=== PATIENT | female | born 2000 | race Caucasian/White ===

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

== ENCOUNTER → 2020-03-12 | Outpatient (REF) | payer OTHER, BC | LOC: M LAB REF 15:43 | PROVIDERS: ATTEND Physician Assistant | DX: R30.0 Dysuria (principal) ==

== ENCOUNTER 2020-11-29 08:53 | Emergency (ER) | payer BC, OTHER ==
[~2020-11-29] VITALS: Ht 162.6 cm; Wt 52.6 kg
[2020-11-29 11:37] VITALS: BP 162/72
--- NOTE | 2020-11-30 08:12 | ECGEPIP ---
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
== END 2020-11-29 11:40 | disposition home or self-care (01) ==
LOC: M ED 08:53
DX: F43.0 Acute stress reaction (principal); Z88.1 Allergy status to other antibiotic agents

== ENCOUNTER 2021-01-21 02:20 | Emergency (ER) | payer BC, OTHER, SELFPAY ==
[~2021-01-21] VITALS: Ht 162.6 cm; Wt 65.0 kg
[2021-01-21 02:21] VITALS: BP 119/77
[2021-01-21] MEDS: CIPROFLOXACIN 500MG TABLET PO ONE (04:26)
[2021-01-21] MEDS: PHENAZOPYRIDINE 100 MG TAB PO ONE (04:26)
[2021-01-21] MEDS ORDERED: PYRI1TAB5 PO (04:27)
[2021-01-21] MEDS ORDERED: CIPR-249 PO (04:27)
== END 2021-01-21 04:58 | disposition home or self-care (01) ==
LOC: M ED 02:20
DX: N30.00 Acute cystitis without hematuria (principal); F41.9 Anxiety disorder, unspecified; F90.9 Attention-deficit hyperactivity disorder, unspecified type; F42.9 Obsessive-compulsive disorder, unspecified; Z88.1 Allergy status to other antibiotic agents; Z87.440 Personal history of urinary (tract) infections

== ENCOUNTER 2021-01-30 04:34 | Emergency (ER) | payer OTHER ==
[~2021-01-30] VITALS: Ht 154.9 cm; Wt 56.1 kg
[~2021-01-30 04:34] MED LIST: CIPR-249 PO; PYRI1TAB5 PO
[2021-01-30 04:35] VITALS: BP 116/75
== END 2021-01-30 05:59 | disposition left against medical advice (07) ==
LOC: M ED 04:34
DX: Z53.21 Procedure and treatment not carried out due to patient leaving prior to being seen by health care provider (principal)

== ENCOUNTER 2021-07-11 20:09 | Emergency (ER) | payer OTHER ==
[~2021-07-11] VITALS: Ht 162.6 cm; Wt 55.1 kg
[2021-07-11 20:12] VITALS: BP 140/83
--- OUTSIDE RECORDS SUMMARY | 2021-07-11 20:21 | CCD ---
Author Author [facility] Organization [facility] Address Unknown Phone Unavailable Care Team Providers Care Manager Of Maintenance Name Role Phone Delilah Brasher PROBLEMS Type Condition ICD9-CM Code [id number] Code Onset Dates Condition S tatus W/U Status Risk SNOMED Code Notes Problem Stomach pain R10.9 Active confirmed 0398111 02 Problem Anxiety F41.9 Active confirmed 86218309 Problem Facial paresthesia R20.2 Active confirmed 9 3267979 Problem Transient vision disturbance of both eyes H53.9 Active confirmed 26226928 Problem Chronic GERD K21.9 Active confirmed 4925257 09 ALLERGIES Allergen (clinical drug ingredient) Drug/Non Drug Allergy do cumented on EMR Reaction Allergy Type Onset Date Status Omnicef Hives Drug Allergy Active ENCOUNTERS from 2000 to 2021-05-29 Encounter Location Date Provider [place] [facility] [place] [address] [phone] [place] [address] 14 May, 2021 Delilah Brasher IMMUNIZATIONS No Information SOCIAL HISTORY Tobacco Use: Social History Observation Description Date Details (start date - stop date) Never Smoker Sex Assigned At : Social History Observation Description Sex Assigned At Unknown Education: Question Answer Notes Level of Education: Finished High School Language: Question Answer Notes Languages spoken: Luxembourgish Tobacco Use: Question Answer Notes Are you a: never smoker REASON FOR REFERRAL No Information VITAL SIGNS No information MEDICATIONS Medication SIG (Take, Route, Frequency, Duration) Notes Start Da te End Date Status Depo-Provera 150 MG/ML 1 ml Intramuscular for 30 day(s) Unknown Doxycycline Hyclate 100 MG 1 capsule Orally every 12 hrs for 7 d ay(s) January, Active Omeprazole 40 MG 1 capsule 30 minutes before morning meal Orally Once a day for 30 day(s) Dec, Active Nitrofurantoin Monohyd Macro 100 MG 1 capsule at bedti me with food Orally Twice a day for 5 days January, Active Carafate 1 GM 1 tablet on an empty stomach Orally Twice a day for 90 day(s) January, Active PROCEDURES No Information RESULTS No Results REASON FOR VISIT NO SHOWED MEDICAL (GENERAL) HISTORY Type Description Date Medical History Anxiety Medical History ADHD Medical History OCD Surgical History No Surgical history information Goals Section No Information Health Concerns No Information MEDICAL EQUIPMENT No Information MENTAL STATUS No Information FUNCTIONAL STATUS No Information ASSESSMENTS No Information PLAN OF TREATMENT No Information Insurance Providers Payer Name Payer Address Payer Phone Insured Name Patient Relati onship to Insured Coverage Start Date Coverage End Date AETNA [facility] [address] [facility] [id number] Calvin Hickey
--- OUTSIDE RECORDS SUMMARY | 2021-07-11 20:21 | CCD | Continuity of Care Document ---
Author Author [facility] Organization [facility] Address Unknown Phone Unavailable Care Team Providers Care Delivery Of Shopping News Name Role Phone Dwello Melly MACKAY Unavailable Unavailable Allergies, Adverse Reactions, Alerts Substance Reaction Status Criticality cefdinir Hives Active No Information Medications Medication Instructions Dosage Effective Dates (start - stop) Sta tus Comments medroxyprogesterone 150 mg/mL intramuscular suspension IM every 10-13 weeks - Active medroxyprogesterone 150 mg/mL intramuscular suspension IM every 10-13 weeks - Active medroxyprogesterone 150 mg/mL intramuscular suspension IM every 10-13 weeks - Active valacyclovir 1 gram tablet 1 tab po qd x 5d for outbreak - Active medroxyprogesterone 150 mg/mL intramuscular suspension IM every 10-13 weeks - Active medroxyprogesterone 150 mg/mL intramuscular suspension IM every 10-13 weeks - Active Problems Condition Effective Dates (start - stop) Clinical Status C omments Encounter for oth general cnsl and advice on contraception Other sex counseling Encounter for surveillance of injectable contraceptive Other specified noninflammatory disorders of vagina Human immunodeficiency virus [HIV] counseling Encounter for test, result negative Encounter for initial prescription of injectable contracep Encounter for oth general cnsl and advice on contraception Other sex counseling Encntr for rn hyperbaric exam (general) (routine) w/o abn findings Encntr screen for infections w sexl mode of transmiss Encounter for surveillance of injectable contraceptive Encounter for test, result negative Urgency of urination Other sex counseling Encounter for ot general cnsl and advice on contraception Dysuria High risk heterosexual behavior Encounter for ot general cnsl and advice on contraception Other specified noninflammatory disorders of vagina Ot disrd of the skin and subcutaneous tissue Encounter for ot general cnsl and advice on contraception Encounter for initial prescription of injectable contracep Encntr screen for infections w sexl mode of transmiss Other sex counseling Acute vaginitis Encounter for test, result negative Encounter for screening for human immunodeficiency virus 2019 - Human immunodeficiency virus [HIV] counseling - Human immunodeficiency virus [HIV] counseling Other sex counseling Encounter for [facility] general cnsl and advice on contraception Encounter for test, result negative Encounter for initial prescription of injectable contracep High risk heterosexual behavior Encntr screen for infections w sexl mode of transmiss Acute cystitis without hematuria Candidiasis of vulva and vagina Encounter for prescription of emergency contraception Acute cystitis without hematuria Encntr screen for infections w sexl mode of transmiss High risk heterosexual behavior Other sex counseling Encounter for [facility] general cnsl and advice on contraception Encounter for test, result negative Human immunodeficiency virus [HIV] counseling Encounter for surveillance of contraceptive pills Candidiasis of vulva and vagina Inapprop chg quantitav hCG in early Other sex counseling Encounter for [facility] general cnsl and advice on contraception Encntr screen for infections w sexl mode of transmiss High risk heterosexual behavior Herpesviral infection of urogenital system, unspecified Other sex counseling Encounter for [facility] general cnsl and advice on contraception Encounter for test, result negative Inapprop chg quantitav hCG in early Encounter for initial prescription of contraceptive pills Encntr screen for infections w sexl mode of transmiss Encounter for screening for human immunodeficiency virus High risk heterosexual behavior Candidiasis of vulva and vagina Human immunodeficiency virus [HIV] counseling - Encntr screen for infections w sexl mode of transmiss High risk heterosexual behavior Other sex counseling Encounter for [facility] general cnsl and advice on contraception Encounter for test, result positive Problems related to unwanted state, incidental Encounter for blood typing Encounter for other specified special examinations Encounter for preprocedural laboratory examination Encounter for test, result negative Encntr screen for infections w sexl mode of transmiss High risk heterosexual behavior Other sex counseling Encounter for [facility] general cnsl and advice on contraception Encounter for routine checking of intrauterine contracep dev Encounter for removal of intrauterine contraceptive device Encntr screen for infections w sexl mode of transmiss High risk heterosexual behavior Human immunodeficiency virus [HIV] counseling Encounter for screening for human immunodeficiency virus Other specified noninflammatory disorders of vagina Encounter for oth general cnsl and advice on contraception Acute vaginitis Encounter for test, result negative High risk heterosexual behavior Human immunodeficiency virus [HIV] counseling Other sex counseling Encounter for routine checking of intrauterine contracep dev Pelvic and perineal pain Herpes simplex - Active Type 2 Procedures Procedure Date OFFICE VISIT, EST Depo/Medroxyprogesterone Inj. 150 Mg Nurse/CA 021 ASSAY OF BODY FLUID ACIDITY SMEAR, WET MOUNT, SALINE/INK CVR Blood Pressure CVR Med.Svc. Height/Weight CVR Drier Attendant.Svc. Contraceptive CVR Drier Attendant.Svc. Nutrition CVR Drier Attendant.Svc. STI / H Results Test Name Date and Time Measure Units Reference Range Abnormal Flag St atus Comments Panel Description: Wet Prep Final Wet Prep 08:13:19 Hyphae/Trisha: no; Budding yeast: no; Trich: no; Clue cells: no; WBCs: no; Amine/Whiff test: negative; pH: 5.0 Final Panel Description: Vaginal pH Final Vaginal pH 08:13:01 pH: 5.0. Final Advance Directives Directive Yes / No Effective Date File Name No Information Encounters Encounter Description Practice Location Reason(s) For Visit Diagnose s Date Provider Providers Copied on Encounter OFFICE VISIT, EST [facility], [address] [place] [address], [id number], [place] tel:[phone] [facility] [place] Vaginal Discharge (chief complaint) Encounter for oth general cnsl and advic e on contraceptionOther sex counselingEncounter for surveillance of injectable contraceptiveOther specified noninflammatory disorders of vagina Lilo Chow . [address] [place] [address], [id number], [place]. tel:[phone] Referring Provider: Melly Nayg, [address] [place] [address], [id number]. tel:[phone] [facility], [address] [place] [address], [id number], [place] tel:[phone] [facility] Human immunodeficie ncy virus [HIV] counselingEncounter for test, result negativeEncounter for initial prescription of injectable contracepEncounter for oth general cnsl and advice on contraceptionOther sex counselingEncntr for rn hyperbaric exam (general) (routine) w/o abn findingsEncntr screen for infections w sexl mode of transmiss Ignacio Coles. [address] [place] [address], [id number], [place]. tel:[phone] Referring Provider: Delia Pierre, [address] [place] [address], [id number]. tel:[phone] [facility], [address] [place] [address], [id number], [place] tel:[phone] [facility] Encounter for surve illance of injectable contraceptiveEncounter for test, result negative Ignacio Coles. [address] [place] [address], [id number], [place]. tel:[phone] Referring Provider: Delia Pierre, [address] [place] [address], [id number]. tel:[phone] Provider: PABLO Nurse/CA. [facility], [address] [place] [address], [id number], [place] tel:[phone] [facility] [place] Urgency of urinatio nOther sex counselingEncounter for oth general cnsl and advice on contraceptionDysuria Lola Marion. [address] [place] [address], [id number], [place]. tel:[phone] Referring Provider: Sanam Davila, [address], [place], [id number]. tel:[phone] [facility], [address] [place] [address], [id number], tel:[phone] PABLO Perez High risk heterosex ual behaviorEncounter for oth general cnsl and advice on contraceptionOther specified noninflammatory disorders of vaginaOth disrd of the skin and subcutaneous tissue Robert Shelley. [address] [place], [place], [id number], . tel:[phone] Referring Provider: Daphney Jones, [address] [place] [address], [id number]. tel:[phone] [facility], [address] [place] [address], [id number], [place] tel:[phone] [facility] [place] Encounter for oth g eneral cnsl and advice on contraceptionEncounter for initial prescription of injectable contracepEncntr screen for infections w sexl mode of transmissOther sex counselingAcute vaginitisEncounter for test, result negativeEncounter for screening for human immunodeficiency virusHuman immunodeficiency virus [HIV] counseling Lilo Chow. [address] [place], [place], [id number], . tel:[phone] Referring Provider: Melly Nagy, [address] [place] [address], [id number]. tel:[phone] [facility], [address] [place] [address], [id number], [place] tel:[phone] [facility] Human immunodeficie ncy virus [HIV] counselingOther sex counselingEncounter for oth general cnsl and advice on contraceptionEncounter for test, result negativeEncounter for initial prescription of injectable contracepHigh risk heterosexual behaviorEncntr screen for infections w sexl mode of transmissAcute cystitis without hematuriaCandidiasis of vulva and vaginaEncounter for prescription of emergency contraception Vinay Cervantes. [address] [place], [place], [id number], [place]. tel:[phone] Referring Provider: Helen Mclean, [address] [place], [place], [id number]. tel:[phone] [facility], [address] [place], [place], [id number], [place] tel:[phone] [facility] [place] Acute cystitis without h ematuria Edyta Chow. [address] [facility], [id number], [place]. tel:[phone] [facility], [address] [place] [address], [id number], [place] tel:[phone] [facility] [place] Encntr screen for i nfections w sexl mode of transmissHigh risk heterosexual behaviorOther sex counselingEncounter for oth general cnsl and advice on contraceptionEncounter for test, result negativeHuman immunodeficiency virus [HIV] counselingEncounter for surveillance of contraceptive pillsCandidiasis of vulva and vagina Lola Marion. [address] [place] [address], [id number], [place]. tel:[phone] Referring Provider: Sanam Davila, [address] [place] [address], [id number]. tel:[phone] [facility], [address] [place] [address], [id number], [place] tel:[phone] [facility] [place] Inapprop chg quanti tav hCG in early pregnancyOther sex counselingEncounter for oth general cnsl and advice on contraceptionEncntr screen for infections w sexl mode of transmissHigh risk heterosexual behaviorHerpesviral infection of urogenital system, unspecified Vinay Cervantes. [address] [place], [place], [id number], [place]. tel:[phone] Referring Provider: Helen Mclean, [address] [place], [place], [id number]. tel:[phone] [facility], [address] [place] [address], [id number], tel:[phone] [facility] [place] Other sex counselin gEncounter for oth general cnsl and advice on contraceptionEncounter for test, result negativeInapprop chg quantitav hCG in early pregnancyEncounter for initial prescription of contraceptive pillsEncntr screen for infections w sexl mode of transmissEncounter for screening for human immunodeficiency virusHigh risk heterosexual behaviorCandidiasis of vulva and vaginaHuman immunodeficiency virus [HIV] counseling Vinay Cervantes. [address] [place] [address], [id number], . tel:[phone] Referring Provider: Helen Mclean, [address] [place], [place], [id number]. tel:[phone] [facility], [address] [place] [address], [id number], [place] tel:[phone] [facility] [place] Encntr screen for i nfections w sexl mode of transmissHigh risk heterosexual behaviorOther sex counselingEncounter for oth general cnsl and advice on contraceptionEncounter for test, result positiveProblems related to unwanted pregnancy state, incidentalEncounter for blood typingEncounter for other specified special examinationsEncounter for preprocedural laboratory examination Lola Marion. [address] [place] [address], [id number], [place]. tel:[phone] Referring Provider: Sanam Davila, [address], [place], [id number]. tel:[phone] [facility], [address] [place] [address], [id number], [place] tel:[phone] [facility] [place] Encounter for pregn rachel test, result negativeEncntr screen for infections w sexl mode of transmissHigh risk heterosexual behaviorOther sex counselingEncounter for oth general cnsl and advice on contraceptionEncounter for routine checking of intrauterine contracep devEncounter for removal of intrauterine contraceptive device Vinay Cervantes. [address] [place] [address], [id number], . tel:[phone] Referring Provider: Helen Mclean, [address] [place], [place], [id number]. tel:[phone] [facility], [address] [place] [address], [id number], tel:[phone] [facility] Encntr screen for i nfections w sexl mode of transmissHigh risk heterosexual behaviorHuman immunodeficiency virus [HIV] counselingEncounter for screening for human immunodeficiency virusOther specifie d noninflammatory disorders of vaginaEncounter for oth general cnsl and advice on contraceptionAcute vaginitis Esvin Echavarria. [address] [place], [place], [id number]. tel:[phone] Referring Provider: Italia Mcallister, [address] [place] [address], [id number]. tel:[phone] [facility], [address] [place] [address], [id number], tel:[phone] [facility] Encounter for pregn rachel test, result negativeHigh risk heterosexual behaviorHuman immunodeficiency virus [HIV] counselingOther sex counselingEncounter for routine checking of intrauterine contracep devPelvic and perineal pain Nirav Gage. [address] [place], [place], [id number]. tel:[phone] Referring Provider: Merari Gastelum, [address] [place] [address], [id number]. tel:[phone] Family History Family Member Diagnosis Age At Onset Mother Ovarian Cysts 1st degree relative No hx of venous thromboembolism Immunizations Vaccine Date Status Comments No Information Payers Payer name Insurance type Covered constitution party ID Authorization(s ) [employer] ELIGIBILITY [facility] Social History Type Description Quantity Date Captured Comments Alcohol Use Details Unknown Caffeine Use Details Unknown Tobacco Use Status No Information Smoking Status Never smoker Sex Female Vital Signs Date / Time: Height Weight BMI Pulse Rate Blood Pressure Temperatu re Respiratory Rate Body Surface Area Head Circumference BMI percentile Pulse Ox In haled Ox 7:46 AM 64.00 in 120.00 lbs 20.60 kg/meter(2) 112/73 m m[Hg] Chief Complaint And Reason For Visit Most recent encounter only, dated '07/02/2021 07:30'. Vaginal Discharge (chief complaint) Reason For Referral Reason For Referral No Information Plan Of Treatment Date Type Action Status Appointment Alban Hickey BOOKED History Of Present Illness Encounter Date Complaint History Of Present I llness No Information Functional Status Date Functional Assessment No Information Medications Administered Medication Instructions Dosage Effective Dates (start - stop) Sta tus Comments No Information Instructions Date Instruction Additional Informati on No Information Assessments Type Assessment Date assessment Encounter for ot general cnsl and advic e on contraception assessment Other sex counseling assessment Encounter for surveillance of injectable contraceptive assessment Other specified noninflammatory disorder s of vagina Goals Health Concern Goal Type Priority Status Date No Information Medical Equipment Description Device [place] Device Identifier Effective Jose es (start - stop) Status No Information Mental Status Date Cognitive Assessment No Information Health Concerns Observation Date No Information Concern Status Date No Information Physical Examination Exam Findings Details Neurological Normal Level of consciousne ss - Normal. Orientation - Normal. Genitourinary Normal Urethral meatus - No rmal. Urethra - Normal. External genitalia - Normal. Cervix - Normal. Genitourinary * Vagina - menses.
--- OUTSIDE RECORDS SUMMARY | 2021-07-11 20:21 | CCD ---
Author Author [facility] Organization [facility] Address Unknown Phone Unavailable Care Team Providers Care Helix Coil Winder Name Role Phone Maring, Andrea PA Unavailable Unavailable Maring, Andrea PA Unavailable Unavailable Maring, Andrea PA Unavailable Unavailable Maring, Andrea PA Unavailable Unavailable Maring, Andrea PA Unavailable Unavailable Maring, Andrea PA Unavailable Unavailable Maring, Andrea PA Unavailable Unavailable Maring, Andrea PA Unavailable Unavailable Maring, Andrea PA Unavailable Unavailable Maring, Andrea PA Unavailable Unavailable Maring, Andrea PA Unavailable Unavailable Maring, Andrea PA Unavailable Unavailable Maring, Andrea PA Unavailable Unavailable Maring, Andrea PA Unavailable Unavailable Maring, Andrea PA Unavailable Unavailable Maring, Andrea PA Unavailable Unavailable NO, PCP Unavailable Unavailable Lola, Marianne Perdueey PA Unavailable Unavailable Denver, Marianne Marion PA Unavailable Unavailable Marianne Davilaey PA Unavailable Unavailable Denver, Marianne Perdueey PA Unavailable Unavailable DenverMarianne tongey PA Unavailable Unavailable Denver, Marianne Sanam PA Unavailable Unavailable Denver, J Sanam PA Unavailable Unavailable Denver, J Sanam PA Unavailable Unavailable Denver, J Sanam PA Unavailable Unavailable Denver, J Sanam PA Unavailable Unavailable Denver, J Sanam PA Unavailable Unavailable Denver, J Sanam PA Unavailable Unavailable Denver, J Sanam PA Unavailable Unavailable Denver, J Sanam PA Unavailable Unavailable Denver, J Sanam PA Unavailable Unavailable Denver, J Sanam PA Unavailable Unavailable Denver, J Sanam PA Unavailable Unavailable Denver, J Sanam PA Unavailable Unavailable Denver, J Sanam PA Unavailable Unavailable Denver, J Sanam PA Unavailable Unavailable Denver, J Sanam PA Unavailable Unavailable Denver, J Sanam PA Unavailable Unavailable Green HEEL STIFFENER HEEL STIFFENER, Delia Unavailable Unavailable Green HEEL STIFFENER HEEL STIFFENER, Delia Unavailable Unavailable Green HEEL STIFFENER HEEL STIFFENER, Delia Unavailable Unavailable Green HEEL STIFFENER HEEL STIFFENER, Delia Unavailable Unavailable Green HEEL STIFFENER HEEL STIFFENER, Delia Unavailable Unavailable Dwello PA PA, Melly Unavailable Unavailable Dwello PA PA, Melly Unavailable Unavailable Dwello PA PA, Melly Unavailable Unavailable Dwello PA PA, Melly Unavailable Unavailable Dwello PA PA, Melly Unavailable Unavailable Dwello PA PA, Melly Unavailable Unavailable Dwello PA PA, Melly Unavailable Unavailable PRYBYLOWSKI, E SANDEE PA Unavailable Unavailable PRYBYLOWSKI, E SANDEE PA Unavailable Unavailable PRYBYLOWSKI, E SANDEE PA Unavailable Unavailable PRYBYLOWSKI, E SANDEE PA Unavailable Unavailable PRYBYLOWSKI, E SANDEE PA Unavailable Unavailable PRYBYLOWSKI, E SANDEE PA Unavailable Unavailable PRYBYLOWSKI, E SANDEE PA Unavailable Unavailable PRYBYLOWSKI, E SANDEE PA Unavailable Unavailable PRYBYLOWSKI, E SANDEE PA Unavailable Unavailable PRYBYLOWSKI, E SANDEE PA Unavailable Unavailable PRYBYLOWSKI, E SANDEE PA Unavailable Unavailable PRYBYLOWSKI, E SANDEE PA Unavailable Unavailable PRYBYLOWSKI, E SANDEE PA Unavailable Unavailable PRYBYLOWSKI, E SANDEE PA Unavailable Unavailable PRYBYLOWSKI, E SANDEE PA Unavailable Unavailable PRYBYLOWSKI, E SANDEE PA Unavailable Unavailable PRYBYLOWSKI, E SANDEE PA Unavailable Unavailable Marianne CHAVIRA MD Unavailable Unavailable Marianne CHAVIRA MD Unavailable Unavailable Marianne CHAVIRA MD Unavailable Unavailable Marianne CHAVIRA MD Unavailable Unavailable Marianne CHAVIRA MD Unavailable Unavailable Marianne CHAVIRA MD Unavailable Unavailable Marianne CHAVRIA MD Unavailable Unavailable Marianne CHAVIRA MD Unavailable Unavailable Marianne CHAVIRA MD Unavailable Unavailable Astor-Ramirez, Daphney CNM Unavailable Unavailab le Kimberly-Ramirez, Daphney CNM Unavailable Unavailab le Astor-Ramirez, Daphney CNM Unavailable Unavailab le Kimberly-Ramirez, Daphney CNM Unavailable Unavailab le Astor-Ramirez, Daphney CNM Unavailable Unavailab le Astor-Ramirez, Daphney CNM Unavailable Unavailab le Re-disclosure Warning The records that you are about to access may contain information from federally-assisted alcohol or drug abuse programs. If such information is present, then the following federally mandated warning applies: This information has been disclosed to you from records protected by federal confidentiality rules (42 CFR part 2). The federal rules prohibit you from making any further disclosure of this information unless further disclosure is expressly permitted by the written consent of the person to whom it pertains or as otherwise permitted by 42 CFR part 2. A general authorization for the release of medical or other information is NOT sufficient for this purpose. The Federal rules restrict any use of the information to criminally investigate or prosecute any alcohol or drug abuse patient.The records that you are about to access may contain highly sensitive health information, the redisclosure of which is protected by Article 27-F of the [facility] Public Health law. If you continue you may have access to information: Regarding HIV / AIDS; Provided by facilities licensed or operated by the [facility] Office of Mental Health; or Provided by the [facility] Office for People With Developmental Disabilities. If such information is present, then the following [facility] mandated warning applies: This information has been disclosed to you from confidential records which are protected by state law. State law prohibits you from making any further disclosure of this information without the specific written consent of the person to whom it pertains, or as otherwise permitted by law. Any unauthorized further disclosure in violation of state law may result in a fine or custodial sentence or both. A general authorization for the release of medical or other information is NOT sufficient authorization for further disc losure. Family History Family Member Name Family Member Gender Family Member Status Date o f Status Description Data Source(s) Unknown Female Diagnosis 08/16/2017 12:00:00 AM KITTY [facility] ([facility]) Encounters Encounter Providers Location Date Indications Data Source(s ) Outpatient Attender: Andrea MACKAY 07/11/20 07:22:17 PM EDT - 07/11/2021 07:51:42 PM EDT [facility] ([facility] ) OFFICE VISIT, ESTOutpatient Attender: Melly MACKAY PPNCNY Hetal celestinertdarrel 07/02/2021 07:30:00 AM EDT - 07/02/2021 07:30:00 AM EDT Other specified noninflammatory disorders of vaginaEncounter for surveillance of injectable contraceptiveOther sex counselingEncounter for oth general cnsl and advice on contraception [facility] ([facility]) Other specified noninflammatory disorder s of vagina Encounter for surveillance of injectable contraceptive Other sex counseling Encounter for oth general cnsl and advic e on contraception [place] [address] [facility] [address] 05/26/2021 12:00:00 AM EDT eCW1 (Critical access hospital) PREV VISIT, EST, AGE 18-39Outpatient Attender: Delia Pierre HEEL STIFFENER HEEL STIFFENER PABLO [place] 04/15/2021 07:30:00 AM EDT - 04/15/2021 07:30:00 AM ED T Encntr screen for infections w sexl mode of transmiss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) w/o abn findingsOther sex counselingEncounter for oth general cnsl and advice on contraceptionEncounter for initial prescription of injectable contracepEncounter for test, result negativeHuman immunodeficiency virus [HIV] counseling [facility] ([facility]) Encntr screen for infections w sexl mode of transmiss 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) w/o abn findings Other sex counseling Encounter for oth general cnsl and advic e on contraception Encounter for initial prescription of in jectable contracep Encounter for test, result neg ative Human immunodeficiency virus [HIV] couns eling Unknown [address] [facility] [address] 04/02/2021 12:00:00 AM EDT eCW1 (Critical access hospital) [place] [address] [facility] [address] 02/04/2021 12:00:00 AM EDT eCW1 (Critical access hospital) [place] [address] [facility] [address] 01/29/2021 12:00:00 AM EDT eCW1 (Critical access hospital) [place] [address] [facility] [address] 01/27/2021 12:00:00 AM EDT eCW1 (Critical access hospital) [place] [address] [facility] [address] 01/08/2021 12:00:00 AM EDT eCW1 (Critical access hospital) [place] [address] [facility] [address] 01/07/2021 12:00:00 AM EDT eCW1 (Critical access hospital) Attender: Delia Pierre NP HEEL STIFFENER PPNCRYAN [place] 0 11/20/2020 08:50:00 AM EST - 11/20/2020 08:50:00 AM EST Encounter for test, result negativeEncounter for surveillance of injectable contraceptive [facility] ([facility]) Encounter for test, result neg ative Encounter for surveillance of injectable contraceptive OutpatientOFFICE VISIT, EST Attender: Sanam MACKAY PPMIREILLE nails 10/02/2020 03:15:00 PM EST - 10/02/2020 03:15:00 PM EST DysuriaEncounter for oth general cnsl and advice on contraceptionOther sex counselingUrgency of urination [facility] ([facility]) Dysuria Encounter for oth general cnsl and advic e on contraception Other sex counseling Urgency of urination OFFICE VISIT, ESTOutpatient Attender: Daphney Paz es CNM PPNCNY Chris 08/26/2020 09:05:00 AM EST - 08/26/2020 09:05:00 AM ES T Oth disrd of the skin and subcutaneous tissueOther specified noninflammatory disorders of vaginaEncounter for oth general cnsl and advice on contraceptionHigh risk heterosexual behavior [facility] ([facility]) Oth disrd of the skin and subcutaneous t issue Other specified noninflammatory disorder s of vagina Encounter for oth general cnsl and advic e on contraception High risk heterosexual behavior Attender: SANDEE Perez 08/21/2020 03:20:00 PM EST - 08/21/2020 03:20:00 PM EST [facility] ([facility]) OutpatientOFFICE VISIT, EST Attender: Melly Fong [place] 08/15/2020 02:30:00 PM EST - 08/15/2020 02:30:00 PM EST Human immunodeficiency virus [HIV] counselingEncounter for screening for human immunodeficiency virusEncounter for test, result negativeAcute vaginitisOther sex counselingEncntr screen for infections w sexl mode of transmissEncounter for initial prescription of injectable contracepEncounter for oth general cnsl and advice on contraception [facility] ([facility]) Human immunodeficiency virus [HIV] couns eling Encounter for screening for human immuno deficiency virus Encounter for test, result neg ative Acute vaginitis Other sex counseling Encntr screen for infections w sexl mode of transmiss Encounter for initial prescription of in jectable contracep Encounter for oth general cnsl and advic e on contraception Emergency Attender: MATI CHAVIRA MDConsultant: PCP NO 06/02/2020 01:38:00 AM EDT - 06/02/2020 02:21:00 AM EDT [facility] Patient discharged. Immunizations Vaccine Date Status Description Data Source(s) COVID-19 VACCINE Moderna 01/24/2021 12:00:00 AM EDT completed NYSIIS Vaccine Series Complete: NOThis Data was Submitted to [facility] [employer]. Medications Medication Brand Name Start Date Product Form Dose Route Admi nistrative Instructions Pharmacy Instructions Status Indications Reaction Description Data Source(s) medroxyprogesterone acetate 150 MG/ML In jectable Suspension medroxyprogesterone 150 mg/mL intramuscular suspension medroxyprogesterone 150 mg/mL intramuscu lar suspension 07/02/2021 12:00:00 AM EDT active IM every 10-13 weeks [facility] ([facility]) medroxyprogesterone acetate 150 MG/ML In jectable Suspension medroxyprogesterone 150 mg/mL intramuscular suspension medroxyprogesterone 150 mg/mL intramuscu lar suspension 04/15/2021 12:00:00 AM EDT active IM every 10-13 weeks [facility] ([facility]) NITROFURANTOIN, MACROCRYSTALS 25 MG / Ni trofurantoin, Monohydrate 75 MG Oral Capsule Nitrofurantoin Monohyd Macro 100 MG Nitrofurantoin Monohyd Macro 100 MG 01/29/2021 12:00:00 AM EDT active Nitrofurantoin Monohyd Macro 100 MG eCW1 ([facility]) NITROFURANTOIN, MACROCRYSTALS 25 MG / Ni trofurantoin, Monohydrate 75 MG Oral Capsule Nitrofurantoin Monohyd Macro 100 MG Nitrofurantoin Monohyd Macro 100 MG 01/29/2021 12:00:00 AM EDT active Nitrofurantoin Monohyd Macro 100 MG eCW1 ([facility]) NITROFURANTOIN, MACROCRYSTALS 25 MG / Ni trofurantoin, Monohydrate 75 MG Oral Capsule Nitrofurantoin Monohyd Macro 100 MG Nitrofurantoin Monohyd Macro 100 MG 01/29/2021 12:00:00 AM EDT active Nitrofurantoin Monohyd Macro 100 MG eCW1 ([facility]) NITROFURANTOIN, MACROCRYSTALS 25 MG / Ni trofurantoin, Monohydrate 75 MG Oral Capsule Nitrofurantoin Monohyd Macro 100 MG Nitrofurantoin Monohyd Macro 100 MG 01/29/2021 12:00:00 AM EDT active Nitrofurantoin Monohyd Macro 100 MG eCW1 ([facility]) doxycycline hyclate 100 MG Oral Capsule Doxycycline Hy clate 100 MG Doxycycline Hyclate 100 MG 01/12/2021 12:00:00 AM EDT 1.0 {capsule} active eCW1 ([facility]) doxycycline hyclate 100 MG Oral Capsule Doxycycline Hy clate 100 MG Doxycycline Hyclate 100 MG 01/12/2021 12:00:00 AM EDT 1.0 {capsule} active Doxycycline Hyclate 100 MG eCW1 ([facility]) doxycycline hyclate 100 MG Oral Capsule Doxycycline Hy clate 100 MG Doxycycline Hyclate 100 MG 01/12/2021 12:00:00 AM EDT 1.0 {capsule} active Doxycycline Hyclate 100 MG eCW1 ([facility]) doxycycline hyclate 100 MG Oral Capsule Doxycycline Hy clate 100 MG Doxycycline Hyclate 100 MG 01/12/2021 12:00:00 AM EDT 1.0 {capsule} active Doxycycline Hyclate 100 MG eCW1 ([facility]) doxycycline hyclate 100 MG Oral Capsule Doxycycline Hy clate 100 MG Doxycycline Hyclate 100 MG 01/12/2021 12:00:00 AM EDT 1.0 {capsule} active Doxycycline Hyclate 100 MG eCW1 ([facility]) doxycycline hyclate 100 MG Oral Capsule Doxycycline Hy clate 100 MG Doxycycline Hyclate 100 MG 01/12/2021 12:00:00 AM EDT 1.0 {capsule} active Doxycycline Hyclate 100 MG eCW1 ([facility]) Sucralfate 1000 MG Oral Tablet [Carafate] Carafate 1 GM Sulma fate 1 01/10/2021 12:00:00 AM EDT 1.0 {tablet_on_an_empty_stomach} active Carafate 1 GM eCW1 ([facility]) Sucralfate 1000 MG Oral Tablet [Carafate] Carafate 1 GM [place]ma fate 1 01/10/2021 12:00:00 AM EDT 1.0 {tablet_on_an_empty_stomach} active Carafate 1 GM eCW1 ([facility]) Sucralfate 1000 MG Oral Tablet [Carafate] Carafate 1 GM [place] fate 1 01/10/2021 12:00:00 AM EDT 1.0 {tablet_on_an_empty_stomach} active Carafate 1 GM eCW1 ([facility]) Sucralfate 1000 MG Oral Tablet [Carafate] Carafate 1 GM Sulma fate 1 01/10/2021 12:00:00 AM EDT 1.0 {tablet_on_an_empty_stomach} active Carafate 1 GM eCW1 ([facility]) Sucralfate 1000 MG Oral Tablet [Carafate] Carafate 1 GM [place] fate 1 01/10/2021 12:00:00 AM EDT 1.0 {tablet_on_an_empty_stomach} ac tive eCW1 ([facility]) Sucralfate 1000 MG Oral Tablet [Carafate] Carafate 1 GM Sulma fate 1 GM 01/10/2021 12:00:00 AM EDT 1.0 {tablet_on_an_empty_stomach} active Carafate 1 GM eCW1 ([facility]) Omeprazole 40 MG Delayed Release Oral Capsule Omeprazole 40 MG 12/31/2020 12:00:00 AM EDT active Omeprazo le 40 MG eCW1 ([facility]) Omeprazole 40 MG Delayed Release Oral Capsule Omeprazole 40 MG 12/31/2020 12:00:00 AM EDT active Omeprazo le 40 MG eCW1 ([facility]) Omeprazole 40 MG Delayed Release Oral Capsule Omeprazole 40 MG 12/31/2020 12:00:00 AM EDT active e CW1 ([facility]) Omeprazole 40 MG Delayed Release Oral Capsule Omeprazole 40 MG 12/31/2020 12:00:00 AM EDT active Omeprazo le 40 MG eCW1 ([facility]) Omeprazole 40 MG Delayed Release Oral Capsule Omeprazole 40 MG 12/31/2020 12:00:00 AM EDT active Omeprazo le 40 MG eCW1 ([facility]) Omeprazole 40 MG Delayed Release Oral Capsule Omeprazole 40 MG 12/31/2020 12:00:00 AM EDT active Omeprazo le 40 MG eCW1 ([facility]) Omeprazole 40 MG Delayed Release Oral Capsule Omeprazole 40 MG 12/31/2020 12:00:00 AM EDT active Omeprazo le 40 MG eCW1 ([facility]) medroxyprogesterone acetate 150 MG/ML In jectable Suspension medroxyprogesterone 150 mg/mL intramuscular suspension medroxyprogesterone 150 mg/mL intramuscu lar suspension 11/20/2020 12:00:00 AM EST active IM every 10-13 weeks [facility] ([facility]) Fluconazole 150 MG Oral Tablet fluconazole 150 mg tabl et fluconazole 150 mg tablet 10/02/2020 12:00:00 AM EST completed 1 po x 1 for fungal infection then repeat in 72 hours if needed [facility] ([facility]) valacyclovir 1000 MG Oral Tablet valacyclovir 1 gram t ablet valacyclovir 1 gram tablet 10/02/2020 12:00:00 AM EST active 1 tab po qd x 5d for outbreak [facility] ([facility]) Levofloxacin 250 MG Oral Tablet levofloxacin 250 mg ta blet levofloxacin 250 mg tablet 10/02/2020 12:00:00 AM EST active take 1 tablet by oral route every day for three days [facility] ([facility]) Lidocaine 0.05 MG/MG Topical Ointment lidocaine 5 % to pical ointment lidocaine 5 % topical ointment 08/26/2020 12:00:00 AM EST active apply ointment to lesions q 2 hrs prn discomfort [facility] Fluconazole 150 MG Oral Tablet fluconazole 150 mg tabl et fluconazole 150 mg tablet 08/21/2020 12:00:00 AM EST completed 1 po x 1 for fungal infection then repeat in 72 hours if needed [facility]) medroxyprogesterone acetate 150 MG/ML In jectable Suspension medroxyprogesterone 150 mg/mL intramuscular suspension medroxyprogesterone 150 mg/mL intramuscu lar suspension 08/15/2020 12:00:00 AM EST active IM every 10-13 weeks [facility] ([facility]) Metronidazole 500 MG Oral Tablet metronidazole 500 mg tablet metronidazole 500 mg tablet 08/15/2020 12:00:00 AM EST complete d 1 tab po bid x 7d (#14) [facility] ([facility]) [place] 10/01 (28) 1 mg-20 mcg (21)/75 mg (7) tablet {21 (ethinyl estradiol 0.02 MG / norethindrone acetate 1 MG Oral Tablet) / 7 (ferrous fumarate 75 MG Oral Tablet) } Pack 03/20/2020 12:00:00 AM EDT active [place] 10/01 28 Day Pack [facility] ([facility]) Sertraline 50 MG Oral Tablet sertraline 50 mg tablet sertraline 50 mg tablet completed [facility] ([facility]) Insurance Providers Payer name Policy type / Coverage type Policy ID Covered alliance party ID Covered alliance party's relationship to campbell Policy Campbell Plan Information [employer] [id number] Self [id number] [employer] U [id number] Self [id number] EXCELLUS H [id number] Child [id number] EXCELLUS H [id number] Self [id number] [employer] Commercial Insurance Co. [id number] Parent [id number] Excell[employer] Blue Cross and Blue Shield - [place] Blue Cross/B lue Shield [id number] Parent [id number] [employer]. [id number] Parent [id number] [employer] Commercial Insurance Co. [id number] Parent [id number] EXCELLUS BLUE CROSS BLUE SHIELD HEA [id number] P [id number] EXCELLUS BLUE CROSS BLUE SHIELD HEA [id number] P [id number] MEDICAID [id number] SP [id number] [place] INSURANCE [id number] SP [id number] MEDICAID [id number] SP [id number] [facility] DIST 47140 [id number] SELF PAY HEA [id number] S SELF PAY HEA SELF PAY HEA [facility] [place] INSURANCE-OP [id number] undefined [id number] [facility] [place] INSURANCE-CLIN[facility] [id number] undef ined [id number] [employer]UT[employer] [id number] undefined [id number] [facility] [place] INSURANCE-OP [id number] undefined [id number] EBS-RMSCO [id number] 19 [id number] [facility] [employer] INSURANCE-OP [id number] [facility] DIST [id number] [id number] [employer] [id number] 19 [id number] AETNA [place] [id number] FA2 [id number] [facility] -O/P [id number] [employer] [place] [id number] FA2 [id number] [employer] [id number] FA2 [id number] [employer] [place] PPO [id number] [employer] [id number] SELF PAY ONLY SP [facility] [id number] undefined [id number] [employer] [id number] undefined [id number] Problems, Conditions, and Diagnoses Code Display Name Description Problem Type Effective Dates Data Source(s) N3001 Acute cystitis with hematuria Acute cystitis with zachary turia Diagnosis 06/02/2020 01:38:00 AM EDT [facility] R300 Dysuria Dysuria Diagnosis 06/02/2020 01:38:00 AM ED T [facility] K21.9 [id number] Chronic GERD Problem 12/31/2020 12:00:00 AM EDT eCW1 ([facility]) H53.9 [id number] Transient vision disturbance of both eyes Problem 12/31/2020 12:00:00 AM EDT eCW1 ([facility]) R20.2 [id number] Facial paresthesia Problem 12/31/2020 12:00: 00 AM EDT eCW1 ([facility]) F41.9 [id number] Anxiety Problem 12/31/2020 12:00:00 AM ED T eCW1 ([facility]) R10.9 [id number] Stomach pain Problem 12/31/2020 12:00:00 AM EDT eCW1 ([facility]) Surgeries/Procedures Procedure Description Date Indications Data Source(s) CVR Breaker Machine Tender.Svc. STI / H 07/02/2021 12:00:00 AM EDT - 07/02/2021 12:00:00 AM EDT [facility] ([facility]) CVR Breaker Machine Tender.Svc. Nutrition 07/02/2021 12:00: 00 AM EDT - 07/02/2021 12:00:00 AM EDT [facility] ([facility]) CVR Breaker Machine Tender.Svc. Contraceptive 07/02/2021 12 :00:00 AM EDT - 07/02/2021 12:00:00 AM EDT [facility] ([facility]) CVR Med.Svc. Height/Weight 07/02/2021 12 :00:00 AM EDT - 07/02/2021 12:00:00 AM EDT [facility] ([facility]) CVR Blood Pressure 07/02/2021 12:00:00 AM EDT - 2020 12:00:00 AM EDT [facility] ([facility]) SMEAR, WET MOUNT, SALINE/INK 07/02/2021 12:00:00 AM EDT - 07/02/2021 12:00:00 AM EDT [facility] ([facility]) ASSAY OF BODY FLUID ACIDITY 07/02/2021 1 2:00:00 AM EDT - 07/02/2021 12:00:00 AM EDT [facility] ([facility]) Depo/Medroxyprogesterone Inj. 150 Mg Nurse/CA 07/02/2021 12:00:00 AM EDT - 07/02/2021 12:00:00 AM EDT [facility] ([facility]) OFFICE VISIT, EST 07/02/2021 12:00:00 AM EDT - 021 12:00:00 AM EDT [facility] ([facility]) NURSE ONLY INJ. RN/PRENATAL GENETIC COUNSELOR Only 04/15/2021 1 2:00:00 AM EDT - 04/15/2021 12:00:00 AM EDT [facility] ([facility]) Depo/Medroxyprogesterone Inj. 150 Mg Nurse/CA 04/15/2021 12:00:00 AM EDT - 04/15/2021 12:00:00 AM EDT [facility] ([facility]) CVR Breaker Machine Tender.Svc. STI / H 04/15/2021 12:00:00 AM EDT - 04/15/2021 12:00:00 AM EDT [facility] ([facility]) CVR Breaker Machine Tender.Svc. Nutrition 04/15/2021 12:00: 00 AM EDT - 04/15/2021 12:00:00 AM EDT [facility] ([facility]) CVR Med.Svc. Height/Weight 04/15/2021 12 :00:00 AM EDT - 04/15/2021 12:00:00 AM EDT [facility] CVR Blood Pressure 04/15/2021 12:00:00 AM EDT - 2020 12:00:00 AM EDT [facility] ([facility]) HCS Without Test 04/15/2021 12:00:00 AM EDT - 04/15/20 12:00:00 AM EDT [facility] ([facility]) N.GONORRHOEAE, URINE 04/15/2021 12:00:00 AM EDT - 04/15/2021 12:00:00 AM EDT [facility] ([facility]) CHYLMD TRACH, URINE 04/15/2021 12:00:00 AM EDT - 04/15 12:00:00 AM EDT [facility] ([facility]) PREV VISIT, EST, AGE 18-39 04/15/2021 12 :00:00 AM EDT - 04/15/2021 12:00:00 AM EDT [facility] ([facility]) URINE TEST 04/15/2021 12:00:00 AM EDT - 04/15/2021 12:00:00 AM EDT [facility] ([facility]) CVR Breaker Machine Tender.Svc. Other 11/20/2020 12:00:00 AM EST - 2020 12:00:00 AM EST [facility] ([facility]) CVR Breaker Machine Tender.Svc. Nutrition 11/20/2020 12:00: 00 AM EST - 11/20/2020 12:00:00 AM EST [facility] ([facility]) CVR Breaker Machine Tender.Svc. Contraceptive 11/20/2020 12 :00:00 AM EST - 11/20/2020 12:00:00 AM EST [facility] ([facility]) CVR Med.Svc. Height/Weight 11/20/2020 12 :00:00 AM EST - 11/20/2020 12:00:00 AM EST [facility] ([facility]) CVR Blood Pressure 11/20/2020 12:00:00 AM EST - 2020 12:00:00 AM EST [facility] ([facility]) NURSE ONLY DEPO INJ. RN/PRENATAL GENETIC COUNSELOR Only 021 12:00:00 AM EST - 11/20/2020 12:00:00 AM EST [facility] ([facility]) Depo/Medroxyprogesterone Inj. 150 Mg Nurse/CA 11/20/2020 12:00:00 AM EST - 11/20/2020 12:00:00 AM EST [facility] ([facility]) CVR BC Ending Method HORM.INJ. 3 MOS 07/2021 12:00:00 AM EST - 11/20/2020 12:00:00 AM EST [facility] ([facility]) URINE TEST 11/20/2020 12:00:00 AM EST - 11/20/2020 12:00:00 AM EST [facility] ([facility]) Injection Or Lab Only Visit Est 11/21/19 12:00:00 AM EST - 11/20/2020 12:00:00 AM EST [facility] ([facility]) CVR Breaker Machine Tender.Svc. STI / H 10/02/2020 12:00:00 AM EST - 10/02/2020 12:00:00 AM EST [facility] ([facility]) CVR Breaker Machine Tender.Svc. Other 10/02/2020 12:00:00 AM EST - 2020 12:00:00 AM EST [facility] ([facility]) CVR Breaker Machine Tender.Svc. Contraceptive 10/02/2020 12 :00:00 AM EST - 10/02/2020 12:00:00 AM EST [facility] ([facility]) CVR Med.Svc. Height/Weight 10/02/2020 12 :00:00 AM EST - 10/02/2020 12:00:00 AM EST [facility] ([facility]) CVR Blood Pressure 10/02/2020 12:00:00 AM EST - 2020 12:00:00 AM EST [facility] ([facility]) CVR Med.Svc. Other 10/02/2020 12:00:00 AM EST - 2020 12:00:00 AM EST [facility] ([facility]) OFFICE VISIT, EST 10/02/2020 12:00:00 AM EST - 2 021 12:00:00 AM EST [facility] ([facility]) URINE CULTURE/COLONY COUNT 10/02/2020 12 :00:00 AM EST - 10/02/2020 12:00:00 AM EST [facility] ([facility]) URINALYSIS NONAUTO W/O SCOPE 10/02/2020 12:00:00 AM EST - 10/02/2020 12:00:00 AM EST [facility] ([facility]) CVR Breaker Machine Tender.Svc. STI / H 08/26/2020 12:00:00 AM EST - 08/26/2020 12:00:00 AM EST [facility] ([facility]) CVR Breaker Machine Tender.Svc. Contraceptive 08/26/2020 12 :00:00 AM EST - 08/26/2020 12:00:00 AM EST [facility] ([facility]) OFFICE VISIT, EST 08/26/2020 12:00:00 AM EST - 020 12:00:00 AM EST [facility] ([facility]) CVR Breaker Machine Tender.Svc. STI / H 08/15/2020 12:00:00 AM EST - 08/15/2020 12:00:00 AM EST [facility] ([facility]) CVR Breaker Machine Tender.Svc. Other 08/15/2020 12:00:00 AM EST - 2019 12:00:00 AM EST [facility] ([facility]) CVR Breaker Machine Tender.Svc. Contraceptive 08/15/2020 12 :00:00 AM EST - 08/15/2020 12:00:00 AM EST [facility] ([facility]) CVR Med.Svc. Vaginitis Rx 08/15/2020 12: 00:00 AM EST - 08/15/2020 12:00:00 AM EST [facility] ([facility]) CVR Med.Svc. Height/Weight 08/15/2020 12 :00:00 AM EST - 08/15/2020 12:00:00 AM EST [facility] ([facility]) CVR Blood Pressure 08/15/2020 12:00:00 AM EST - 2019 12:00:00 AM EST [facility] ([facility]) THER/PROPH/DIAG INJ, SC/IM 08/15/2020 12 :00:00 AM EST - 08/15/2020 12:00:00 AM EST [facility] ([facility]) Metronidazole 14 Tablets 08/15/2020 12:0 0:00 AM EST - 08/15/2020 12:00:00 AM EST [facility] ([facility]) Depo/Medroxyprogesterone Inj. 150 Mg Nurse/CA 08/15/2020 12:00:00 AM EST - 08/15/2020 12:00:00 AM EST [facility] ([facility]) CVR BC Ending Method HORM.INJ. 3 MOS 12/2019 12:00:00 AM EST - 08/15/2020 12:00:00 AM EST [facility] ([facility]) URINE TEST 08/15/2020 12:00:00 AM EST - 08/15/2020 12:00:00 AM EST [facility] ([facility]) ASSAY OF BODY FLUID ACIDITY 08/15/2020 1 2:00:00 AM EST - 08/15/2020 12:00:00 AM EST [facility] ([facility]) SMEAR, WET MOUNT, SALINE/INK 08/15/2020 12:00:00 AM EST - 08/15/2020 12:00:00 AM EST [facility] ([facility]) SYPHILLIS BLOOD SEROLOGY, QUALITATIVE 12:00:00 AM EST - 08/15/2020 12:00:00 AM EST [facility] ([facility]) HTLV/HIV SERUM TEST 08/15/2020 12:00:00 AM EST - 08/15 12:00:00 AM EST [facility] ([facility]) HEPATITIS C AB TEST 08/15/2020 12:00:00 AM EST - 08/15 12:00:00 AM EST [facility] ([facility]) N.GONORRHOEAE, SWAB 08/15/2020 12:00:00 AM EST - 08/15 12:00:00 AM EST [facility] ([facility]) CHYLMD TRACH, SWAB 08/15/2020 12:00:00 AM EST - 2019 12:00:00 AM EST [facility] ([facility]) OFFICE VISIT, EST 08/15/2020 12:00:00 AM EST - 020 12:00:00 AM EST [facility] ([facility]) ROUTINE VENIPUNCTURE 08/15/2020 12:00:00 AM EST - 08/15/2020 12:00:00 AM EST [facility] ([facility]) Results ID Date Data Source [id number] 07/02/2021 08:13:19 AM EDT [facility] ([facility]) Name Value Range Interpretation Code Description Data Sofia rce(s) Supporting Document(s) Hyphae/Trisha: no; Budding yeast: no; Trich: no; Clue cells: no; WBCs: no; Amine/Whiff test: negative; pH: 5.0 Wet Prep [facility] ([facility]) ID Date Data Source [id number] 07/02/2021 08:13:01 AM EDT [facility] ([facility]) Name Value Range Interpretation Code Description Data Sofia rce(s) Supporting Document(s) pH: 5.0. Vaginal pH [facility]) ID Date Data Source [id number] 04/15/2021 07:33:10 AM EDT [facility] ([facility]) Name Value Range Interpretation Code Description Data Sofia rce(s) Supporting Document(s) NegativeLot: [id number]: 09/11/2022 High Sensitivity Urine Test [facility] ([facility]) ID Date Data Source [id number] 11/20/2020 08:53:26 AM EST [facility] ([facility]) Name Value Range Interpretation Code Description Data Sofia rce(s) Supporting Document(s) NegativeLot: [id number]: 06/11/2022 High Sensitivity Urine Test [facility] ([facility]) ID Date Data Source [id number] 10/02/2020 03:44:16 PM EST [facility] ([facility]) Name Value Range Interpretation Code Description Data Sofia rce(s) Supporting Document(s) Glucose: negative; Blood: mo derate; pH: 6.0; Protein: small; Nitrite: negative; Leukocytes: trace Abnormal (applies to non-numeric results) Urine Dipstick [facility] ([facility]) ID Date Data Source [id number] 08/15/2020 03:23:04 PM EST [facility] ([facility]) Name Value Range Interpretation Code Description Data Sofia rce(s) Supporting Document(s) NegativeLot: [id number]: 11/09/2021 High Sensitivity Urine Test [facility] ([facility]) ID Date Data Source [id number] 08/15/2020 03:19:21 PM EST [facility] ([facility]) Name Value Range Interpretation Code Description Data Sofia rce(s) Supporting Document(s) pH: 5.0. Vaginal pH [facility] ID Date Data Source [id number] 08/15/2020 03:19:11 PM EST [facility] ([facility]) Name Value Range Interpretation Code Description Data Sofia rce(s) Supporting Document(s) Hyphae/Trisha: no; Budding yeast: no; Trich: no; Clue cells: yes (>=20%); WBCs: no; Amine/Whiff test: negative; pH: 5.0 Abnormal (applies to non-numeric results) Wet Prep [facility] ([facility]) ID Date Data Source [id number] 06/02/2020 01:38:00 AM EDT [facility] 1 OrderSheet [facility] Emergency Department [address] [place] [address] Phone #: ext- [phone] 06/02/2020 01:09 Patient: CATHY HICKEY I Sex: F : 2000 Age: 20yWEIGHT:58.9 kg (S) HEIGHT:64 inches (S) BMI:22.3ALLERGIES: OmnicefCHIEF COMPLAINT: dysuriaDIAGNOSIS: Urinary tract infectious diseaseLAB ORDERSOrder Description Priority Entered Acknowledged InitialedUrinalysis (Clean STAT 01:43 06/02/2020 02:15 JmenCgladys) Mati Paul RN Physician;Beta-HCG, Qual STAT 01:43 06/02/2020 02:15 Harsh Paul RN Physician;DIAGNOSTIC STUDY ORDERSOrder Description Priority Entered Acknowledged InitialedMEDICATION/IV/DRIP/FLUID ORDERSOrder Description Priority Entered Acknowledged InitialedCipro PO 500 mg 02:06 06/02/2020 02:16 Herbert Paul RN Physician;Pyridium PO 200 02:07 06/02/2020 02:16 Stevenmg (NOW) Mati Paul RN Physician;Ibuprofen 800 mg 02:07 06/02/2020 02:16 HerbertPO X1 dose: 800 Mait Paul RNmg (NOW x1) Physician;GENERAL ORDERSOrder Description Priority Entered Acknowledged Initialed[Electronically signed by Herbert Paul RN (02:21 06/02/2020)][Electronically signed by Mati Chavira Physician (05:37 06/02/2020)][Electronically locked by Herbert Paul RN (02:21 06/02/2020)] Name Value Range Interpretation Code Description Data Sofia rce(s) Supporting Document(s) ID Date Data Source [id number] 06/02/2020 01:38:00 AM EDT [facility] 1 Medication Reconciliation Report [facility] Emergency Department [address] [place] [address] Phone #: ext- [phone] 06/02/2020 01:09 Patient: CATHY HICKEY I Sex: F : 2000 Age: 20yWeight: 58.9 kgHeight/Length: 64 in.BMI: 22.3ALLERGIES: OmnicefThe patient's Home Medications are listed below:NONE.The source(s) of the original Home Medication information:Not obtained.The following Medications were given to the patient in the Emergency Department:Cipro [PO] PO 500 mg, administered: 06/02/2020 2:16:00 AMPyridium [PO] PO 200 mg, administered: 06/02/2020 2:16:00 AMIbuprofen [PO] PO 800 mg, administered: 06/02/2020 2:16:00 AMThe following Medications were prescribed to the patient:Cipro 500 mg tablet Take 1 tablet twice a day for 7 days -- for UTI. Dispense 14 tablet. Refills: 0.Substitution permitted.[facility] [address] [id number]. .Pyridium 200 mg tablet Take 1 tablet every eight hours for 2 days -- for cystitis / bladder spasm.Dispense 6 tablet. Refills: 0. Substitution permitted.[facility] #01 - [address] [facility] ; [place], [place] [phone]. .ibuprofen 800 mg tablet Take 1 tablet every eight hours as needed for 10 days -- for pain / fever.Dispense 30 tablet. Refills: 0. Substitution permitted.[facility] [address] ; [place], [place] [phone]. FaxNumber: [phone].Valtrex 500 mg tablet Take 1 tablet twice a day for 7 days -- to treat genital herpes. Dispense 14 tablet. 2 Medication Reconciliation Report [facility] Emergency Department [address] [place] [address] Phone #: ext- [phone] 06/02/2020 01:09 Patient: CATHY HICKEY I Sex: F : 2000 Age: 20yRefills: 0. Substitution permitted.Pharmacy - [facility]95 - [address] [facility] ; [place], [place] [phone]. . -- Mati Chavira, Physician Name Value Range Interpretation Code Description Data Sofia rce(s) Supporting Document(s) ID Date Data Source [id number] 06/02/2020 01:38:00 AM EDT [facility] 1 Medication Administration Record [facility] Emergency Department [address] [place] [address] Phone #: ext- [phone] 06/02/2020 01:09 Patient: CATHY HICKEY I Sex: F : 2000 Age: 20yWeight: 58.9 kgHeight/Length: 64 inBMI: 22.3ALLERGIES: Omnicef Date/Time Medication Administered Medication OrderedGiven CIPRO [PO] (CIPROFLOXACIN) Cipro PO 500 mg02:16 06/02/2020 Dose: 500 mg Capsules Stefano Paul RNGileonila PYRIDIUM [PO] (PHENAZOPYRIDINE Pyridium PO 200 mg (NOW)02:16 06/02/2020 HCL)Herbert Paul RN Dose: 200 mg Capsules POGiven IBUPROFEN [PO] Ibuprofen 800 mg PO X1 dose: 98581:16 06/02/2020 Dose: 800 mg Tablets PO mg (NOW x1)Herbert Paul RN Name Value Range Interpretation Code Description Data Soifa rce(s) Supporting Document(s) ID Date Data Source [id number] 06/02/2020 01:38:00 AM EDT [facility] 1 General Instructions [facility] Emergency Department [address] [place] [address] Phone #: ext- [phone] 06/02/2020 01:09 Patient: CATHY HICKEY I Sex: F : 2000 Age: 20yAcute urinary tract infection with cystitis and hematuria. Not associated with indwelling catheter orobstruction.INSTRUCTIONSAlternate Tylenol (Acetaminophen) or Motrin (Ibuprofen) for temperature greater than 100.4 degrees bytympanic thermometer. Take according to label instructions.Drink plenty of fluids.Warnings: GENERAL WARNINGS: Return or contact your physician immediately if your conditionworsens or changes unexpectedly, if not improving as expected, or if other problems arise.Prescription Medications:Cipro 500 mg tablet Take 1 tablet twice a day for 7 days -- for UTI. Dispense 14 tablet. Refills: 0.Substitution permitted.[facility] [address] [place] [id number]. .Pyridium 200 mg tablet Take 1 tablet every eight hours for 2 days -- for cystitis / bladder spasm.Dispense 6 tablet. Refills: 0. Substitution permitted.[facility] [address]42 [address] [place], [place] [phone]. .ibuprofen 800 mg tablet Take 1 tablet every eight hours as needed for 10 days -- for pain / fever.Dispense 30 tablet. Refills: 0. Substitution permitted.[facility] [address] [place] [address] ; [place], [place] [phone]. .Valtrex 500 mg tablet Take 1 tablet twice a day for 7 days -- to treat genital herpes. Dispense 14 tablet.Refills: 0. Substitution permitted.[facility] [place] [address] [place] [address] ; [place], [place] [phone]. .Follow-up:Follow up with your doctor in ten days if not better. Call for an appointment. Reason for referral: evaluation,treatment and UTI / Cystitis.Understanding of the discharge instructions verbalized by patient. 2 General Instructions [facility] Emergency Department [address] [place] [address] Phone #: ext- [phone] 06/02/2020 01:09 Patient: CATHY HICKEY I Sex: F : 2000 Age: 20y ADDITIONAL INFORMATIONBladder Infection, Female (Adult)Urine is normally doesn't have any bacteria in it. But bacteria can get into the urinary tract from theskin around the rectum. Or they can travel in the blood from elsewhere in the body. Once they are inyour urinary tract, they can cause infection in the urethra (urethritis), the bladder (cysti tis), or thekidneys (pyelonephritis).The most common place for an infection is in the bladder. This is called a bladder infection. This isone of the most common infections in women. Most bladder infections are easily treated. They arenot serious unless the infection spreads to the kidney.The phrases "bladder infection," "UTI," and "cystitis" are often used to describe the same thing. Butthey are not always the same. Cystitis is an inflammation of the bladder. The most common cause ofcystitis is an infection.SymptomsThe infection causes inflammation in the urethra and bladder. This causes many of the symptoms.The most common symptoms of a bladder infection are: Pain or burning when urinating Having to urinate more often than usual 3 General Instructions [facility] Emergency Department [address] [place] [address] Phone #: ext- [phone] 06/02/2020 01:09 Patient: CATHY HICKEY I Sex: F : 2000 Age: 20y Urgent need to urinate Only a small amount of urine comes out Blood in urine Abdominal discomfort. This is usually in the lower abdomen above the pubic bone. Cloudy urine Strong- or bad-smelling urine Unable to urinate (urinary retention) Unable to hold urine in (urinary incontinence) Fever Loss of appetite Confusion (in older adults)CausesBladder infections are not contagious. You can't get one from someone else, from a toilet seat, orfrom sharing a bath.The most common cause of bladder infections is bacteria from the bowels. The bacteria get onto theskin around the opening of the urethra. From there, they can get into the urine and travel up to thebladder, causing inflammation and infection. This usually happens because of: Wiping improperly after urinating. Always wipe from front to back. Bowel incontinence Procedures such as having a catheter inserted Older age Not emptying your bladder. This can allow bacteria a chance to grow in your urine. Dehydration Constipation Sex Use of a diaphragm for control 4 General Instructions [facility] Emergency Department [address] [place] [address] Phone #: cyd- [phone] 06/02/2020 01:09 Patient: [id number] Sex: F : 2000 Age: 20yTreatmentBladder infections are diagnosed by a urine test. They are treated with antibiotics and usually clear upquickly without complications. Treatment helps prevent a more serious kidney infection.MedicinesMedicines can help in the treatment of a bladder infection: Take antibiotics until they are used up, even if you feel better. It is important to finish them to make sure the infection has cleared. You can use acetaminophen or ibuprofen for pain, fever, or discomfort, unless another medicine was prescribed. If you have chronic liver or kidney disease, talk with your healthcare provider before using these medicines. Also talk with your provider if you've ever had a stomach ulcer or gastrointestinal bleeding, or are taking blood-thinner medicines. If you are given phenazopydridine to reduce burning with urination, it will cause your urine to become a bright orange color. This can stain clothing.Care and preventionThese self-care steps can help prevent future infections: Drink plenty of fluids to prevent dehydration and flush out your bladder. Do this unless you must restrict fluids for other health reasons, or your doctor told you not to. Proper cleaning after going to the bathroom is important. Wipe from front to back after using the toilet to prevent the spread of bacteria. Urinate more often. Don't try to hold urine in for a long time. Wear loose-fitting clothes and cotton underwear. Avoid tight-fitting pants. Improve your diet and prevent constipation. Eat more fresh fruit and vegetables, and fiber, and less junk and fatty foods. Avoid sex until your symptoms are gone. Avoid caffeine, alcohol, and spicy foods. These can irritate your bladder. Urinate right after intercourse to flush out your bladder. If you use control pills and have frequent bladder infections, discuss it with your doctor.Follow-up careCall your healthcare provider if all symptoms are not gone after 3 days of treatment. This is especially 5 General Instructions [facility] Department [address] [place] [address] Phone #: usf- [phone] 06/02/2020 01:09 Patient: CATHY HICKEY I Sex: F : 2000 Age: 20yimportant if you have repeat infections.If a culture was done, you will be told if your treatment needs to be changed. If directed, you cancall to find out the results.If X-rays were done, you will be told if the results will affect your treatment.Call 911Call 911 if any of the following occur: Trouble breathing Hard to wake up or confusion Fainting or loss of consciousness Rapid heart rateWhen to seek medical adviceCall your healthcare provider right away if any of these occur: Fever of 100.4F (38.0C) or higher, or as directed by your healthcare provider Symptoms are not better by the third day of treatment Back or belly (abdominal) anshul n that gets worse Repeated vomiting, or unable to keep medicine down Weakness or dizziness Vaginal discharge Pain, redness, or swelling in the outer vaginal area (labia) [id number] [employer]. [address] [place] [address]. All rights reserved. This information is not intended as asubstitute for professional medical care. Always follow your healthcare professional's instructions.Fever Control (Adult)A fever is a normal reaction of your body to an illness. The temperature itself usually isn't harmful. Itactually helps your body fight infections. You don't need to treat a fever unless you feel veryuncomfortable.Home careFollow these tips to take care of yourself at home: 6 General Instructions [facility] Emergency Department [address] [place] [address] Phone #: ext- [phone] 06/02/2020 01:09 Patient: CATHY HICKEY I Sex: F : 2000 Age: 20y If you feel warm, check your temperature. Dress in light clothing. This will help you lose extra body heat through your skin. The fever will go up if you wear extra layers or wrap in blankets. Fever causes your body to lose water through evaporation. Drink plenty of fluids. These include water, juice, clear sodas, vciente nestor, or lemonade.Fever medicinesYou can take acetaminophen every 4 to 6 hours if: You feel very uncomfortable Your oral temperature is 100.4F (38C) or higherIf you can't take or keep down oral medicine, ask your pharmacist for acetaminophen suppositories.You don't need a prescription for these.If the fever doesn't get better within 1 hour after you take acetaminophen, take ibuprofen. If thisworks, keep taking the ibuprofen every 6 to 8 hours.If you have chronic liver or kidney disease, talk with your healthcare provider before taking thesemedicines. Also talk with your provider if you ever had a stomach ulcer or GI (gastrointestinal)bleeding.If either medicine alone doesn't keep the fever down, you may switch off between the 2 medicinesevery 3 to 4 hours. But do this only if your healthcare provider has told you to. For example, takeibuprofen. Wait 3 hours. Then take acetaminophen. Wait 3 hours. Take ibuprofen, and so on. Followyour provider's instructions exactly.Don't give aspirin to anyone younger than age 19 who is ill with a fever. Aspirin can cause seriousside effects such as liver damage and Chico syndrome. Although rare, Chico syndrome is a veryserious illness usually found in children younger than age 15. The syndrome is closely linked to theuse of aspirin or aspirin-containing medicine during viral infection.Follow-up careFollow up with your healthcare provider if you don't get better after 48 hours.When to seek medical adviceCall your healthcare provider right away if any of these occur: Fever, as directed by your healthcare provider, or: o Fever of 100.4F (38C) or above lasting for 24 to 48 hours 7 General Instructions [facility] Emergency Department [address] [place] [address] Phone #: ext- [phone] 06/02/2020 01:09 Patient: CATHY HICKEY I Sex: F : 2000 Age: 20y o Fever lasting more than 3 days, even without other symptoms o Fever that happens after visiting a foreign country o Fever that happens within a month after visiting a country with malaria. Malaria is a serious illness. A fever can still be malaria even if you took medicine to prevent it. The medicine does not work in all cases. Confusion or trouble thinking Headache or stiff neck Flat, small, purplish red spots on your skin Low blood pressure Fast heart rate Fast (rapid) breathing You are You just had surgery, another medical procedure, or were just discharged from the hospital Use of medicines that suppress the immune system (immunosuppressants). These include Prednisone, cancer medicines, and organ transplant rejection medicines. If you are not sure about whether your medicines suppress your immune system, ask your healthcare provider.Call 911Someone should call 911 if you: Are having trouble breathing or shortness of breath Are unresponsiveImportant reminderCall your healthcare provider if you get a fever after visiting a place where infectious diseases arecommon. Many people picker tender a cold or other virus while traveling. This usually goes away without aproblem. But, some places have more serious diseases. Fever with certain other symptoms maymean you have a serious illness. Symptoms to watch for include diarrhea, skin rashes, insect bites,and skin boils, or infections. Your provider may ask you: What you did on your trip How long you were there Where you stayed (hotel, andreafski house, tent) 8 General Instructions [facility] Emergency Department [address] [place] [address] Phone #: ext- [phone] 06/02/2020 01:09 Patient: CATHY HICKEY I Sex: F : 2000 Age: 20y What you ate and drank If you were bitten by insects or other bugs If you swam in freshwater If you had sex or got a tattoo or piercing while you were thereCheck the [facility] to get more information about specific infectious diseases in the areas you havetraveled. [phone] [employer]. [address] [place] [address], [place] [address]. All rights reserved. This information is not intended as asubstitute for pro fessional medical care. Always follow your healthcare professional's instructions. You have been given the following additional information: Bladder Infection, Female (Adult) Fever Control (Adult)(Electronically signed by Mati Chavira, Physician 06/02/2020 05:37) Name Value Range Interpretation Code Description Data Sofia rce(s) Supporting Document(s) ID Date Data Source [id number] 06/02/2020 01:38:00 AM EDT [facility] 1 Clinical Report - Nurses [facility] Emergency Department [address] [place] [address] Phone #: ext- [phone] 06/02/2020 01:09 Patient: CATHY HICKEY I Sex: F : 2000 Age: 20yTRIAGEArrived by private vehicle. Historian: patient.Triage time: 01:10 06/02/2020. Acuity: LEVEL 4.Chief Complaint: PAINFUL URINATION and URGENCY.This started last night. ( awoke from sleeping and went to urinate and had burning during urination).Treatment CLUB DIRECTOR:None.SEPSIS SCREEN: Sepsis Screen negative. No suspected or confirmed signs of infection present. --01:149 Herbert Paul RN01:10 06/02/20. BP: 130/83 (regular adult cuff) taken on the right arm, via an automated monitor, whilelying. MAP: 98. HR: 85 (regular and normal rate). RR: 18 (regular, unlabored and normal). O2 saturation:100% on room air. Temp: 98.3 F. Pain level now: 04/21. --01:14 06/02/20 Herbert Paul RNTreatment CLUB DIRECTOR:(pyridium). --01:15 06/02/20 Herbert Paul RN.Weight: 58.9 kg stated. Height/Length: 64 inches Per Patient. BMI: 22.3. --01:09 06/02/20 Herbert Paul RN.MedicationsNone. --01:11 06/02/20 Herbert Paul RN.AllergiesOmnicef. Definite Mild(hives) --01:12 06/02/20 Herbert Paul RN.HistoryPAST MEDICAL HX: Negative. Immunizations: up-to-date. Last normal menstrual period was 1 weekago.SURGERY HX: No history of previous surgery.SOCIAL HX: Never smoker. No alcohol use or drug use. The patient was offered HIV testing butdeclined and hepatitis C testing but declined. The patient has not traveled outside the [place]Infectious disease exposure: No infectious disease exposure.SELF HARM ASSESSMENT: Self harm assessment was performed. The patient answered "no" to thequestion(s) "Have you recently felt down, depressed, or hopeless?", "Do you have thoughts of harming or 2 Clinical Report - Nurses [facility] Emergency Department [address] [place] [address] Phone #: ext- [phone] 06/02/2020 01:09 Patient: CATHY HICKEY I Sex: F : 2000 Age: 20y killing yourself?", "Do you have a plan for harming or killing yourself?", "Have you recently had thoughts about harming or killing others?", "Do you have any dangerous items in your possession?", "Have you noticed less interest or pleasure in doing things?", "Are you here because you tried to hurt yourself?" and "Have you ever tried to hurt yourself before today?". ABUSE ASSESSMENT: No report of abuse. FALL RISK ASSESSMENT: Fall risk assessment completed. No risk factors identified. --01:06/02/20 Herbert Paul RN. Assessment The patient states feels the same. --01:06/02/20 Herbert Paul RN.PHYSICAL ASSESSMENTAmbulatory to room.GENERAL / NEURO / PSYCH: Alert. Oriented X 4. Appea rs in no acute distress.HEENT: Mucous membranes are pink.RESPIRATORY: Respirations not labored. Breath sounds within normal limits.CVS: Normal heart rate and rhythm. Capillary refill less than 2 seconds.GI / : Abdomen soft and nontender. Bowel sounds within normal limits. No vaginal bleeding. Novaginal discharge. No genital lesions noted.SKIN: Skin is warm and dry. --01:06/02/20 Herbert Paul RN.NURSING PROGRESS NOTESHead of bed elevated 30 degrees. Reassurance given to the patient. Call light placed in reach of patient.Bed placed in lowest position. Brakes of bed on. Patient ready for evaluation- ED physician notified.--01:06/02/20 Herbert Paul RN 02:06/02/2020 Cipro (Ciprofloxacin) PO Capsules 500 mg given. Allergies verified and confirmed 5 rights. Information reviewed with patient including reason for taking this medication, signs of allergic reaction and precautions. Verbalizes understanding. --02:06/02/20 Herbert Paul RN 02:06/02/2020 Pyridium (Phenazopyridine HCl) PO Capsules 200 mg given. Allergies verified and confirmed 5 rights. Information reviewed with patient including reason for taking this medication, signs of allergic reaction and precautions. Verbalizes und erstanding. --02:06/02/20 Herbert Paul RN 02:06/02/2020 Ibuprofen PO Tablets 800 mg given. Allergies verified and confirmed 5 rights. Information reviewed with patient including reason for taking this medication, signs of allergic reaction and precautions. Verbalizes understanding. --02:06/02/20 Herbert Paul RN.DISPOSITION / DISCHARGE Gaston Coma Scale: 15- eyes open- spontaneous (4); best verbal response- oriented (5); best motor response- obeys commands (6). Departure time: 02:06/02/2020. Condition at departure: unchanged. No learning barriers present. Discharge instructions provided and reviewed with the patient. Reviewed 3 Clinical Report - Nurses [facility] Emergency Department [address] [place] [address] Phone #: ext- [phone] 06/02/2020 01:09 Patient: CATHY HICKEY I Sex: F : 2000 Age: 20y medication(s) side effects, precautions, dosing and course information. Prescription(s) sent electronically to pharmacy. Reviewed fever care instructions. Reviewed referral to family practice for followup. Reviewed need for increased fluid intake. Patient verbalized understanding. Written instructions provided in Mozambican. The patient was discharged home. She left ambulatory and via private vehicle. Patient driving. --02:06/02/20 Herbert Paul RN 02:18 06/02/20. BP: 122/83 (regular adult cuff) taken on the right arm, via an automated monitor, while lying. MAP: 96. HR: 72 (regular and normal rate). RR: 16 (regular, unlabored and normal). O2 saturation: 98% on room air. Temp: 97.2 F (oral). Pain level now: 5/10. --02:20 06/02/20 Herbert Paul RN.Locked/Released at 06/02/2020 02:21 by Herbert Paul RN Name Value Range Interpretation Code Description Data Sofia rce(s) Supporting Document(s) ID Date Data Source [id number] 06/02/2020 01:38:00 AM EDT [facility] 1 Clinical Report - Physicians/Mid Levels [facility] Emergency Department [address] [place] [address] Phone #: ext- [phone] 06/02/2020 01:09 Patient: CATHY HICKEY I [facility]#: [id number] Sex: F : 2000 Age: 20y Time Seen: 01:39 06/02/2020. Arrived- By private vehicle. Historian- patient. Disposition decision: 02:07 06/02/2020.HISTORY OF PRESENT ILLNESS Chief Complaint: DYSURIA. This started last night and still present and worsening. It was abrupt in onset and has been waxing/waning. The symptoms are described as moderate. The patient has had pelvic pain. No abdominal pain, vaginal pain, low back pain, flank pain or missed period(s). No irregular periods, abnormal bleeding, vaginal discharge, vaginal itching or genital lesions. The patient has had pain with urination and urgency of urination. The patient has had urinary frequency and hematuria. Sexually active. control measures utilized. Denies current . Not receiving care. Similar symptoms previously. Patient has had similar symptoms several times, frequently. Recent medical care: The patient was seen recently at another facility in a clinic.REVIEW OF SYSTEMSNo nausea, vomiting, diarrhea, black stools or headache. No fever, chills, anorexia, eye discomfort orsore throat. No cough, difficulty breathing, chest pain, skin rash or enlarged lymph nodes. No joint pain.PAST HISTORYPast history not negative. See nurses notes. Other disease. ( UTIsHerpes genitalis).SOCIAL HISTORYNever smoker. No alcohol use or drug use. No recent travel.ADDITIONAL NOTESThe nursing notes have been reviewed with agreement regarding the chief complaint, HPI, ROS, PMH andpatient medications and allergie s.PHYSICAL EXAMVital Signs: 06/02/2020 01:10 BP: lying 130/83. MAP: 98. HR: 85. RR: 18. O2 saturation: 100% on roomair. Temp: 98.3 F. Pain level now: 8/10. Have been reviewed and appear to be correct. Blood pressurenormal. Heart rate normal. Respiratory rate normal. Temperature normal. Oxygen saturation normal.Appearance: Alert. Oriented X3. Anxious. Patient in apparent distress. In distress.HEENT: Normal external inspection.ENT: Pharynx normal.Neck: Neck supple. 2 Clinical Report - Physicians/Mid Levels [facility] Emergency Department [address] [place] [address] Phone #: ext- [phone] 06/02/2020 01:09 Patient: CATHY HICKEY I Sex: F : 2000 Age: 20y CVS: Heart sounds normal. Respiratory: No respiratory distress. Painless inspiration. Breath sounds normal. Chest nontender. Abdomen: Soft and nontender. Bowel sounds normal. No organomegaly. No mass. (Burning on urination). Back: Normal external inspection. : (Deferred). Skin: Skin warm and dry. Normal skin color. No rash. Normal skin turgor. Extremities: Ext remities nontender. No lower extremity edema. Neuro: Oriented X 3. Mood/affect normal. No motor deficit. No sensory deficit.LABS, X-RAYS, AND EKGLaboratory Tests: Laboratory tests have been ordered, with results reviewed and considered in themedical decision making process. Urinalysis: (MARZENA: 06/02/2020 01:39) ( MsgRcvd 06/02/2020 02:03) Final results Test Result Flag Units (Reference) URINALYSIS URINALYSIS SOURCE R COLOR orange (NORMAL: Yello CLARITY cloudy (NORMAL: Clear SPEC GRAVITY 1.020 (1.001 - 1.030 pH 5 (5 - 9) GLUCOSE NORM (NORMAL: Negat BILIRUBIN 6 (NORMAL: Negat KETONE NEG (NORMAL: Negat PROTEIN 100 A (NORMAL: Negat NITRITE POS (NORMAL: Negat BLOOD 250 A (NORMAL: Negat LEUK EST 100 A (NORMAL: Negat UROBILINOGEN 8 (less than 1.0 MICROSCOPIC See Below WBC 30 - 40 A (NORMAL: NONE RBC 10 - 15 A (NORMAL: NONE EPITHELIAL MANY A (NORMAL: NONE BACTERIA 1+ SMALL (NORMAL: NONE MUCOUS 1+ (NORMAL: NONE Beta-HCG, Qual Urine: (MARZENA: 06/02/2020 01:39) ( MsgRcvd 06/02/2020 02:00) Final results Test Result Flag Units (Reference) HCG URINE QUAL NEGATIVE (NORMAL: NEGAT HCG URINE QL REENTER NEGATIVE (NORMAL: NEGAT { KIT LOT # [id number] ){ KIT EXP DATE 06-24-21 ){ PROCEDURAL CONTROL VALID ).PROGRESS AND PROCEDURESCourse of Care: 02:Jun 02 2020. Patient is stable. 3 Clinical Report - Physicians/Mid Levels [facility] Emergency Department [address] [place] [address] Phone #: ext- [phone] 06/02/2020 01:09 ----- Patient: CATHY HICKEY I Sex: F : 2000 Age: 20y 02:Jun 02 2020. Pt. has mild UTI but Macrobid did not eliminate it. Will try Cipro now. Pt. also thinks she has some herpes lesions and I will prescribe short term Valtrex. Disposition: Discharged home in good and improved condition (02:Jun 02 2020). Condition: good.CLINICAL IMPRESSION Acute urinary tract infection with cystitis and hematuria. Not associated with indwelling catheter or obstruction.INSTRUCTIONS Alternate Tylenol (Acetaminophen) or Motrin (Ibuprofen) for temperature greater than 100.4 degrees by tympanic thermometer. Take according to label instructions. Drink plenty of fluids. Warnings: GENERAL WARNINGS: Return or contact your physician immediately if your condition worsens or changes unexpectedly, if not improving as expected, or if other problems arise. Prescription Medications: Cipro 500 mg tablet Take 1 tablet twice a day for 7 days -- for UTI. Dispense 14 tablet. Refills: 0. Substitution permitted. Pharmacy - [facility] [address], [place] [id number]. . Pyridium 200 mg tablet Take 1 tablet every eight hours for 2 days -- for cystitis / bladder spasm. Dispense 6 tablet. Refills: 0. Substitution permitted. [facility] [address] [place] [address] ; [place], [place] [id number]. . ibuprofen 800 mg tablet Take 1 tablet every eight hours as needed for 10 days -- for pain / fever. Dispense 30 tablet. Refills: 0. Substitution permitted. [facility] [address] [place] [address] ; [place], [place] [id number]. . Valtrex 500 mg tablet Take 1 tablet twice a day for 7 days -- to treat genital herpes. Dispense 14 tablet. Refills: 0. Substitution permitted. [facility] [address] [place] [address] ; [place], [place] [id number]. . Follow-up: Follow up with your doctor in ten days if not better. Call for an appointment. Reason for referral: evaluation, 4 Clinical Report - Physicians/Mid Levels [facility] Emergency Department [address] [place] [address] Phone #: ext- [phone] 06/02/2020 01:09 Patient: CATHY HICKEY I Sex: F : 2000 Age: 20y treatment and UTI / Cystitis. Understanding of the discharge instructions verbalized by patient.(Electronically signed by Mati Chavira, Physician 06/02/2020 05:37) Name Value Range Interpretation Code Description Data Sofia rce(s) Supporting Document(s) ID Date Data Source [id number] 06/05/2020 08:19:00 PM EDT [facility] Name Value Range Interpretation Code Description Data Sofia rce(s) Supporting Document(s) CULTURE URINE [facility] _CULTURE URINE_$$[id number]$$[id number]$$[id number]$$[id number]$$[id number]$$[id number]$$[id number]$$[id number]$$133329$$ 909211$$905521$$317751$$474058$$[id number]$$003885$$548863$$373217$$020810$$036178$$ 534480$$012171$$238520$$864070$$964642$$[id number]$$[id number]$$[id number] -- Continued on next page --Patient: BLADIMIR MORGAN I Order: Page 2Culture: CULTURE URINE Status: Final ==== -- Continued on next page --Patient: BLADIMIR MORGAN I Order: Page 2Culture: CULTURE URINE Status: Prelim =====$$[id number] DATE/TIME: 06/05/2020 12:06Culture: CULTURE URINE Status: FinalUrine Culture,Comprehensive: [id number] urogenital flora5,000 Colonies/mL Previous result entered on 06/04/2020 07:06 ET Specimen has been received and testing has been initiated.P1 Test performed by: [facility] #: [id number] [address] [place] [id number] [facility] [id number] Director : Elio Aguilera MD NPI #:Curtain Inspector : [email or web address] REF 06/05/20.XMT.SENT REF ID Date Data Source [id number] 06/02/2020 02:03:00 AM EDT [facility] Name Value Range Interpretation Code Description Data Sofia rce(s) Supporting Document(s) [facility] SOURCE R [facility] al COLOR orange NORMAL: Yellow [facility] CLARITY cloudy NORMAL: Clear [facility] Specific gravity of Urine by Test strip 1.020 1.001 - 1.030 [facility] pH 5 5 - 9 [facility] al Glucose [Mass/volume] in Urine by Test strip NORM NORMAL: Negat leatha [facility] Bilirubin.total [Presence] in Urine by Test strip 6 NORMAL: Negative [facility] Ketones [Presence] in Urine by Test strip NEG NORMAL: Negative [facility] Protein [Mass/volume] in Urine by Test strip 100 NORMAL: Negat leatha [facility] Nitrite [Presence] in Urine by Test strip POS NORMAL: Negative [facility] BLOOD 250 NORMAL: Negative [facility] Leukocyte esterase [Presence] in Urine by Test strip 100 CELINE L: Negative [facility] Urobilinogen [Mass/volume] in Urine by Test strip 8 less rita n 1.0 mg/dL [facility] MICROSCOPIC See Below [facility] ital WBC 30 - 40 NORMAL: NONE SEEN A [facility] Erythrocytes [#/volume] in Urine by Test strip 10 - 15 NORMAL: NON E SEEN A [facility] EPITHELIAL MANY NORMAL: NONE SEEN A [facility] Bacteria [Presence] in Urine sediment by Light microscopy 1+ SMALL NORMAL: NONE SEEN [facility] Mucus [Presence] in Urine sediment by Light microscopy 1+ NOR MAL: NONE SEEN [facility] ID Date Data Source [id number] 06/02/2020 01:59:00 AM EDT [facility] Name Value Range Interpretation Code Description Data Sofia rce(s) Supporting Document(s) HCG URINE QUAL NEGATIVE NORMAL: NEGATIVE [facility] HCG URINE QL REENTER NEGATIVE NORMAL: NEGATIVE [facility] { KIT LOT # [id number] ){ KIT EXP DATE 06-24-21 ){ PROCEDURAL CONTROL VALID ) Procedure Social History Code Duration Value Status Description Data Source(s ) Smoking 07/02/2021 12:00:00 AM EDT Never smoker completed Never s moker [facility] ([facility]) Smoking 02/02/2021 12:00:00 AM EDT Never Smoker completed Never S moker eCW1 ([facility]) Smoking 02/02/2021 12:00:00 AM EDT Never Smoker completed Never S moker eCW1 ([facility]) Smoking 02/02/2021 12:00:00 AM EDT Never Smoker completed Never S moker eCW1 ([facility]) Smoking 01/30/2021 12:00:00 AM EDT Never Smoker completed Never S moker eCW1 ([facility]) Smoking 01/27/2021 12:00:00 AM EDT Never Smoker completed Never S moker eCW1 ([facility]) Smoking 12/31/2020 12:00:00 AM EDT Never Smoker completed Never S moker eCW1 ([facility]) Smoking 12/31/2020 12:00:00 AM EDT Never Smoker completed Never S moker eCW1 ([facility]) Vital Signs ID Date Data Source UNK Name Value Range Interpretation Code Description Data Source(s) Body height 162.56 cm 162.56 cm [facility] ([facility]) Body weight 54.431 kg 54.431 kg [facility] ([facility]) Systolic blood pressure 112 mm[Hg] 112 mm[Hg] N extGen ([facility]) Diastolic blood pressure 73 mm[Hg] 73 mm[Hg] [facility] ([facility]) Body mass index (BMI) [Ratio] 20.60 kg/m2 20.60 kg/m2 [facility] ([facility]) Body height 162.56 cm 162.56 cm [facility] ([facility] Body weight 57.516 kg 57.516 kg [facility] ([facility]) Systolic blood pressure 130 mm[Hg] 130 mm[Hg] N extGen ([facility]) Diastolic blood pressure 79 mm[Hg] 79 mm[Hg] [facility] ([facility]) Body mass index (BMI) [Ratio] 21.77 kg/m2 21.77 kg/m2 [facility] ([facility]) Diastolic blood pressure 70 mm[Hg] 70 mm[Hg] [facility] ([facility]) Body height 162.56 cm 162.56 cm [facility] ([facility]) Body weight 51.710 kg 51.710 kg [facility] ([facility]) Systolic blood pressure 114 mm[Hg] 114 mm[Hg] N extGen ([facility]) Body mass index (BMI) [Ratio] 19.57 kg/m2 19.57 kg/m2 [facility] ([facility]) Body height 162.56 cm 162.56 cm [facility] ([facility]) Body weight 53.796 kg 53.796 kg [facility] ([facility]) Systolic blood pressure 130 mm[Hg] 130 mm[Hg] N [facility]Gen ([facility]) Diastolic blood pressure 82 mm[Hg] 82 mm[Hg] Next[facility] ([facility]) Body temperature 36.67 Ginette 36.67 Ginette Next[facility] ([facility]) Body mass index (BMI) [Ratio] 20.36 kg/m2 20.36 kg/m2 Next[facility] ([facility]) Body height 162.56 cm 162.56 cm [facility] ([facility] Patient Treatment Plan of Care Planned Activity Planned Date Details Description Data Source (s) medroxyprogesterone acetate 150 MG/ML Injectable Suspe nsion 07/02/2021 12:00:00 AM EDT [facility] medroxyprogesterone acetate 150 MG/ML Injectable Suspe nsion 04/15/2021 12:00:00 AM EDT [facility] NITROFURANTOIN, MACROCRYSTALS 25 MG / Ni trofurantoin, Monohydrate 75 MG Oral Capsule 01/29/2021 12:00:00 AM EDT eCW1 ([facility]) doxycycline hyclate 100 MG Oral Capsule 01/12/2021 12:00:00 AM EDT eCW1 ([facility]) Sucralfate 1000 MG Oral Tablet [Carafate] 01/10/2021 12:00:00 AM ED T eCW1 ([facility]) Omeprazole 40 MG Delayed Release Oral Capsule 12/31/2020 12:00:00 A M EDT eCW1 ([facility]) Omeprazole 40 MG Delayed Release Oral Capsule 12/31/2020 12:00:00 A M EDT eCW1 ([facility]) medroxyprogesterone acetate 150 MG/ML Injectable Suspe nsion 11/20/2020 12:00:00 AM EST [facility] valacyclovir 1000 MG Oral Tablet 10/02/2020 12:00:00 AM EST [facility] ([facility]) Fluconazole 150 MG Oral Tablet 10/02/2020 12:00:00 AM EST [facility] ([facility]) Levofloxacin 250 MG Oral Tablet 10/02/2020 12:00:00 AM EST [facility] ([facility]) Lidocaine 0.05 MG/MG Topical Ointment 08/26/2020 12:00:00 AM EST [facility] ([facility]) Fluconazole 150 MG Oral Tablet 08/21/2020 12:00:00 AM EST [facility] ([facility]) medroxyprogesterone acetate 150 MG/ML Injectable Suspe nsion 08/15/2020 12:00:00 AM EST [facility] Metronidazole 500 MG Oral Tablet 08/15/2020 12:00:00 AM EST [facility] ([facility]) [place] 10/01 (28) 1 mg-20 mcg (21)/75 mg (7) tablet 03/20/2020 12:00:00 AM EDT [facility] Sertraline 50 MG Oral Tablet [facility] ([facility])
--- OUTSIDE RECORDS SUMMARY | 2021-07-11 20:21 | CCD | Continuity of Care Document ---
Author Author [facility] Organization 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) w/o abn findings Encntr screen for infections w sexl mode of transmiss Encounter for surveillance of injectable contraceptive Encounter for test, result negative Urgency of urination Other sex counseling Encounter for oth general cnsl and advice on contraception Dysuria High risk heterosexual behavior Encounter for oth general cnsl and advice on contraception Other specified noninflammatory disorders of vagina Oth disrd of the skin and subcutaneous tissue Encounter for oth general cnsl and advice on contraception Encounter for initial prescription of injectable contracep Encntr screen for infections w sexl mode of transmiss Other sex counseling Acute vaginitis Encounter for test, result negative Encounter for screening for human immunodeficiency virus 2019 - Human immunodeficiency virus [HIV] counseling - Human immunodeficiency virus [HIV] counseling Other sex counseling Encounter for [facility] general cnsl and advice on contraception [...] heterosexual behavior Other sex counseling Encounter for [facility] general cnsl and advice on contraception Encounter for test, result negative Human immunodeficiency virus [HIV] counseling Encounter for surveillance of contraceptive pills Candidiasis of vulva and vagina Inapprop chg quantitav hCG in early Other sex counseling Encounter for [facility] general cns and advice on contraception Encntr screen for infections w sexl mode of transmiss High risk heterosexual behavior Herpesviral infection of urogenital system, unspecified Other sex counseling Encounter for [facility] general cnsl and advice on contraception [...] heterosexual behavior Other sex counseling Encounter for [facility] general cnsl and advice on contraception Encounter for test, result positive Problems related to unwanted state, incidental Encounter for blood typing Encounter for other specified special examinations Encounter for preprocedural laboratory examination Encounter for test, result negative Encntr screen for infections w sexl mode of transmiss High risk heterosexual behavior Other sex counseling Encounter for [facility] general cnsl and advice on contraception Encounter for routine checking of intrauterine contracep dev Encounter for removal of intrauterine contraceptive device Encntr screen for infections w sexl mode of transmiss High risk heterosexual behavior Human immunodeficiency virus [HIV] counseling Encounter for screening for human immunodeficiency virus Other specified noninflammatory disorders of vagina Encounter for [facility] general cnsl and advice on contraception Acute vaginitis Encounter for test, result negative High risk heterosexual behavior Human immunodeficiency virus [HIV] counseling Other sex counseling Encounter for routine checking of intrauterine contracep dev Pelvic and perineal pain Herpes simplex - Active Type 2 Procedures Procedure Date URINE TEST PREV VISIT, EST, AGE 18-39 CHYLMD TRACH, URINE N.GONORRHOEAE, URINE HCS Without Test CVR Blood Pressure CVR Med.Svc. Height/Weight CVR Extractions Technician.Svc. Nutrition CVR Extractions Technician.Svc. STI / H Depo/Medroxyprogesterone Inj. 150 Mg Nurse/CA 021 NURSE ONLY INJ. RN/MOLD LAMINATOR Only Results Test Name Date and Time Measure Units Reference Range Abnormal Flag St atus Comments Panel Description: High Sensitivity Urine Test Fi nal High Sensitivity Urine Test 07:33:10 N egativeLot: [id number]: 09/11/2022 Final Advance Directives Directive Yes / No Effective Date File Name No Information Encounters Encounter Description Practice Location Reason(s) For Visit Diagnose s Date Provider Providers Copied on Encounter PREV VISIT, EST, AGE 18-39 [facility], [address] [place] [address], [id number], tel:[phone] [facility] [place] Prevent ative Visit (chief complaint) Human immunodeficiency virus [HIV] couns elingEncounter for test, result negativeEncounter for initial prescription of injectable contracepEncounter for oth general cnsl and advice on contra ceptionOther sex counselingEncntr for loss control manager exam (general) (routine) w/o abn findingsEncntr screen for infections w sexl mode of transmiss Ignacio Coles. [address] [place] [address], [id number], [place]. tel:[phone] Referring Provider: Delia Pierre, [address] [place] [address], [id number]. tel:[phone] [facility] [place], [address] [place] [address], [id number], [place] tel:[phone] [facility] [place] Encounter for surve illance of injectable contraceptiveEncounter for test, result negative Ignacio Coles. [address] [place] [address], [id number], [place]. tel:[phone] Referring Provider: Delia Pierre, [address] [place], [place], [id number]. tel:[phone] Provider: PABLO Nurse/[place]. [facility], [address] [place] [address], [id number], [place] tel:[phone] [facility] [place] Urgency of urinatio nOther sex counselingEncounter for oth general cnsl and advice on contraceptionDysuria Lola Marion. [address] [place] [address], [id number], [place]. tel:[phone] Referring Provider: Sanam Davila, [address] [place], [place], [id number]. tel:[phone] [facility], [address] [place] [address], [id number], [place] tel:[phone] PABLO [place] High risk heterosex ual behaviorEncounter for oth general cnsl and advice on contraceptionOther specified noninflammatory disorders of vaginaOth disrd of the skin and subcutaneous tissue Robert Shelley. [address] [place], [place], [id number], [place]. tel:[phone] Referring Provider: Daphney Jones, [address] [place] [address], [id number]. tel:[phone] [facility], [address] [place] [address], [id number], [place] tel:[phone] [facility] [place] Encounter for oth g eneral cnsl and advice on contraceptionEncounter for initial prescription of injectable contracepEncntr screen for infections w sexl mode of transmissOther sex counselingAcute vaginitisEncounter for test, result negativeEncounter for screening for human immunodeficiency virusHuman immunodeficiency virus [HIV] counseling Lilo Mellyeldon Chow. [address] [place], [place], [id number], [place]. tel:[phone] Referring Provider: Melly Chow Dwello, [address] [place], [place], [id number]. tel:[phone] [facility], [address] [place] [address], [id number], [place] tel:[phone] [facility] [place] Human immunodeficie ncy virus [HIV] counselingOther sex counselingEncounter for oth general cnsl and advice on contraceptionEncounter for test, result negativeEncounter for initial prescription of injectable contracepHigh risk heterosexual behaviorEncntr screen for infections w sexl mode of transmissAcute cystitis without hematuriaCandidiasis of vulva and vaginaEncounter for prescription of emergency contraception Vinay Cervantes. [address] [place], [place], [id number], [place]. tel:[phone] Referring Provider: Helen Mclean, [address] [place], [place], [id number]. tel:[phone] [facility], [address] [place] [address], [id number], [place] tel:[phone] [facility] [place] Acute cystitis without h ematuria Edyta Claudine. [address] [facility], [id number], [place]. tel:[phone] [facility], [address] [place] [address], [id number], [place] tel:[phone] [facility] [place] Encntr screen for i nfections w sexl mode of transmissHigh risk heterosexual behaviorOther sex counselingEncounter for oth general cnsl and advice on contraceptionEncounter for test, result negativeHuman immunodeficiency virus [HIV] counselingEncounter for surveillance of contraceptive pillsCandidiasis of vulva and vagina Lola Marion. [address] [place] [address], [id number], [place]. tel:[phone] Referring Provider: Sanam Davila, [address] [place] [address], [id number]. tel:[phone] [facility], [address] [place] [address], [id number], [place] tel:[phone] [facility] [place] Inapprop chg quanti tav hCG in early pregnancyOther sex counselingEncounter for oth general cnsl and advice on contraceptionEncntr screen for infections w sexl mode of transmissHigh risk heterosexual behaviorHerpesviral infection of urogenital system, unspecified Vinay Cervantes. [address] [place] [address], [id number], [place]. tel:[phone] Referring Provider: Helen Mclean, [address] [place] [address], [id number]. tel:[phone] [facility], [address] [place] [address], [id number], [place] tel:[phone] [facility] [place] Other sex counselin gEncounter for oth general cnsl and advice on contraceptionEncounter for test, result negativeInapprop chg quantitav hCG in early pregnancyEncounter for initial prescription of contraceptive pillsEncntr screen for infections w sexl mode of transmissEncounter for screening for human immunodeficiency virusHigh risk heterosexual behaviorCandidiasis of vulva and vaginaHuman immunodeficiency virus [HIV] counseling Vinay Cervantes. [address] [place] [address], [id number], [place]. tel:[phone] Referring Provider: Helen Mclean, [address] [place], [place], [id number]. tel:[phone] [facility], [address] [place] [address], [id number], tel:[phone] [facility] [place] Encntr screen for i nfections w sexl mode of transmissHigh risk heterosexual behaviorOther sex counselingEncounter for oth general cnsl and advice on contraceptionEncounter for test, result positiveProblems related to unwanted pregnancy state, incidentalEncounter for blood typingEncounter for other specified special examinationsEncounter for preprocedural laboratory examination Lola Marion. [address] [place] [address], [id number], [place]. tel:[phone] Referring Provider: Sanam Davila, [address] [place], [place], [id number]. tel:[phone] [facility], [address] [place] [address], [id number], tel:[phone] [facility] [place] Encounter for pregn rachel test, result negativeEncntr screen for infections w sexl mode of transmissHigh risk heterosexual behaviorOther sex counselingEncounter for oth general cnsl and advice on contraceptionEncounter for routine checking of intrauterine contracep devEncounter for removal of intrauterine contraceptive device Vinay Cervantes. [address] [place] [address], [id number], . tel:[phone] Referring Provider: Helen Mclean, [address] [place], [place], [id number]. tel:[phone] [facility], [address] [place] [address], [id number], [place] tel:[phone] [facility] [place] Encntr screen for i nfections w sexl mode of transmissHigh risk heterosexual behaviorHuman immunodeficiency virus [HIV] counselingEncounter for screening for human immunodeficiency virusOther specifie d noninflammatory disorders of vaginaEncounter for oth general cnsl and advice on contraceptionAcute vaginitis Esvin Echavarria. [address] [place], [place], [id number]. tel:[phone] Referring Provider: Italia Mcallister, [address] [place] [address], [id number]. tel:[phone] [facility], [address] [place], [place], [id number], tel:[phone] [facility] [place] Encounter for pregn rachel test, result negativeHigh risk heterosexual behaviorHuman immunodeficiency virus [HIV] counselingOther sex counselingEncounter for routine checking of intrauterine contracep devPelvic and perineal pain Nirav Gage. [address] [place], [place], [id number]. tel:[phone] Referring Provider: Merari Gastelum, [address] [place] [address], [id number]. tel:[phone] Family History Family Member Diagnosis Age At Onset Mother Ovarian Cysts 1st degree relative No hx of venous thromboembolism Immunizations Vaccine Date Status Comments No Information Payers Payer name Insurance type Covered libertarian ID Authorization(s ) [employer] PRESUMPTIVE ELIGIBILITY [id number] Social History Type Description Quantity Date Captured Comments Alcohol Use Details Unknown Caffeine Use Details Unknown Tobacco Use Status Never smoked tobacco Smoking Status Never smoker Non-Smoking Tobacco Use Details : No Details Available : No Details Available Sex Female Vital Signs Date / Time: Height Weight BMI Pulse Rate Blood Pressure Temperatu re Respiratory Rate Body Surface Area Head Circumference BMI percentile Pulse Ox In haled Ox 7:37 AM 64.00 in 126.80 lbs 21.77 kg/meter(2) 130/79 m m[Hg] Chief Complaint And Reason For Visit Most recent encounter only, dated '04/15/2021 07:30'. Preventative Visit (chief complaint) Reason For Referral Reason For Referral No Information Plan Of Treatment Date Type Action Status Appointment Alban Hickey BOOKED Appointment Alban Hickey BOOKED History Of Present Illness Encounter Date Complaint History Of Present I llness No Information Functional Status Date Functional Assessment No Information Medications Administered Medication Instructions Dosage Effective Dates (start - stop) Sta tus Comments No Information Instructions Date Instruction Additional Informati on No Information Assessments Type Assessment Date assessment Human immunodeficiency virus [HIV] couns eling assessment Encounter for test, result neg ative assessment Encounter for initial prescription of in jectable contracep assessment Encounter for oth general cnsl and advic e on contraception assessment Other sex counseling assessment 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 Anterior palpation - Normal. No abdominal tenderness. No hepatic enlargement. No splenic enlargement. No palpable mass. Cardiovascular Normal Heart rate - Regular rate. Rhythm - Regular. Heart sounds - Normal S1, Normal S2. Murmurs - None. Extremities - No edema. Extremity Normal No Cyanosis. No Se a. Neck Exam Normal Inspection - Normal. Palpation - Normal. Thyroid gland - Normal. Cervical lymph nodes - Normal. Neurological Normal Level of consciousne ss - Normal. Orientation - Normal. Respiratory Normal Inspection - Normal. Auscultation - Normal. Effort - Normal. Skin Normal Inspection - Normal. Palpation/texture - Normal. Breast Comments Due to age and guide lines Breast * Breast exam deferred . BSA was discussed.
[2021-07-11] MEDS ORDERED: ONDANSETRON 4MG/2ML VIAL IV ONE (21:10)
[2021-07-11] MEDS ORDERED: NS 1,000 ML IV ONE (21:10)
[2021-07-11 21:31] LABS: BASO % 0.5 % (0.0-1.0); EOS # 0.1 10^3/uL (0.0-0.5); EOS % 0.6 % (0.0-3.0); HEMATOCRIT 43.6 % (36.0-47.0); HEMOGLOBIN 14.6 g/dl (12.0-15.5); LYMPH # 3.1 10^3/uL (1.5-5.0); LYMPH % 39.5 % (24.0-44.0); MEAN CORPUSCULAR HEMOGLOBIN 30.1 pg (27.0-33.0); MEAN CORPUSCULAR HGB CONC 33.5 g/dl (32.0-36.5); MEAN CORPUSCULAR VOLUME 89.9 fl (80.0-96.0); MONO # 0.7 10^3/uL (0.0-0.8); MONO % 8.8 % (2.0-8.0); NEUTROPHILS # 3.9 10^3/uL (1.5-8.5); NEUTROPHILS % 50.3 % (36.0-66.0); PLATELET COUNT, AUTOMATED 244 10^3/uL (150-450); RED BLOOD COUNT 4.85 10^6/uL (4.00-5.40); WHITE BLOOD COUNT 7.7 10^3/uL (4.0-10.0)
--- OUTSIDE RECORDS SUMMARY | 2021-07-11 21:32 | CCD ---
Author Author [facility] Organization [facility] Address Unknown Phone Unavailable Care Team Providers Care Watch Technician Name Role Phone Maring, Andrea PA Unavailable [...] Unavailable Lola, Marianne Perdueey PA Unavailable Unavailable Beattie, Marianne Marion PA Unavailable Unavailable Marianne Davilaey PA Unavailable Unavailable Beattie, Marianne Perdueey PA Unavailable Unavailable BeattieMarianne tongey PA Unavailable Unavailable Beattie, Marianne Sanam PA Unavailable Unavailable Beattie, J Sanam PA Unavailable Unavailable Beattie, J Sanam PA Unavailable Unavailable Beattie, J Sanam PA Unavailable Unavailable Beattie, J Asnam PA Unavailable Unavailable Beattie, J Sanam PA Unavailable Unavailable Beattie, J Sanam PA Unavailable Unavailable Beattie, J Sanam PA Unavailable Unavailable Beattie, J Sanam PA Unavailable Unavailable Beattie, J Sanam PA Unavailable Unavailable Beattie, J Sanam PA Unavailable Unavailable Beattie, J Sanam PA Unavailable Unavailable Beattie, J Sanam PA Unavailable Unavailable Beattie, J Sanam PA Unavailable Unavailable Beattie, J Sanam PA Unavailable Unavailable Beattie, J Sanam PA Unavailable Unavailable Beattie, J Sanam PA Unavailable Unavailable Green CHIEF CONTROLLER CHIEF CONTROLLER, Delia Unavailable Unavailable Green CHIEF CONTROLLER CHIEF CONTROLLER, Delia Unavailable Unavailable Green CHIEF CONTROLLER CHIEF CONTROLLER, Delia Unavailable Unavailable Green CHIEF CONTROLLER CHIEF CONTROLLER, Delia Unavailable Unavailable Green CHIEF CONTROLLER CHIEF CONTROLLER, Delia Unavailable Unavailable Dwello PA PA, Melly [...] Unavailable Unavailable Marianne CHAVIRA MD Unavailable Unavailable Adams-Ramirez, Daphney CNM Unavailable Unavailab le Kimberly-Ramirez, Daphney CNM Unavailable Unavailab le Adams-Ramirez, Daphney CNM Unavailable Unavailab le Kimberly-Ramirez, Daphney CNM Unavailable Unavailab le Adams-Ramirez, Daphney CNM Unavailable Unavailab le Adams-Ramirez, Daphney CNM Unavailable Unavailab le Re-disclosure Warning [...] is protected by Article 27-F of the [facility] Public Health law. If you continue you may have access to information: Regarding HIV / AIDS; Provided by facilities licensed or operated by the [facility] Office of Mental Health; or Provided by the [facility] Office for People With Developmental Disabilities. If such information is present, then the following [facility] mandated warning applies: This information [...] law may result in a fine or penitentiary sentence or both. A general authorization for the release of medical or other information is NOT sufficient authorization for further disc losure. Family History Family Member Name Family Member Gender Family Member Status Date o f Status Description Data Source(s) Unknown Female Diagnosis 08/16/2017 12:00:00 AM KITTY [facility] ([facility]) Encounters Encounter Providers Location Date Indications Data Source(s ) Outpatient Attender: Andrea MACKAY 07/11/20 07:22:17 PM EDT - 07/11/2021 07:51:42 PM EDT [facility] ([facility] ) OutpatientOFFICE VISIT, EST Attender: Melly MACKAY PPNCNY Hetal andrea 07/02/2021 07:30:00 AM EDT - 07/02/2021 07:30:00 AM EDT Other specified noninflammatory disorders of vaginaEncounter for surveillance of injectable contraceptiveOther sex counselingEncounter for oth general cnsl and advice on contraception [facility] ([facility]) Other specified noninflammatory disorder s of vagina Encounter for surveillance of injectable contraceptive Other sex counseling Encounter for oth general cnsl and advic e on contraception [place] [address] [facility] [address] 05/26/2021 12:00:00 AM EDT eCW1 ([facility]) OutpatientPREV VISIT, EST, AGE 18-39 Attender: Delia Pierre CHIEF CONTROLLER CHIEF CONTROLLER PABLO [place] 04/15/2021 07:30:00 AM EDT - 04/15/2021 07:30:00 AM ED T Encntr screen for infections w sexl mode of transmissEncntr for aeronautical engineering technologist exam (general) (routine) w/o abn findingsOther sex counselingEncounter for oth general cnsl and advice on contraceptionEncounter for initial prescription of injectable contracepEncounter for test, result negativeHuman immunodeficiency virus [HIV] counseling [facility] ([facility]) Encntr screen for infections w sexl mode of transmiss Encntr for aeronautical engineering technologist exam (general) (routine) w/o abn findings Other sex counseling Encounter for oth general cnsl and advic e on contraception Encounter for initial prescription of in jectable contracep Encounter for test, result neg ative Human immunodeficiency virus [HIV] couns eling [place] [address] [facility] [address] 04/02/2021 12:00:00 AM EDT eCW1 ([facility]) [place] [address] [facility] [address] 02/04/2021 12:00:00 AM EDT eCW1 ([facility]) [place] [address] [facility] [address] 01/29/2021 12:00:00 AM EDT eCW1 ([facility]) [place] [address] [facility] [address] 01/27/2021 12:00:00 AM EDT eCW1 ([facility]) [place] [address] [facility] [address] 01/08/2021 12:00:00 AM EDT eCW1 ([facility]) [place] [address] [facility] [address] 01/07/2021 12:00:00 AM EDT eCW1 ([facility]) Attender: Delia Pierre NP CHIEF CONTROLLER PPNCRYAN [place] 0 11/20/2020 08:50:00 AM EST - 11/20/2020 08:50:00 AM EST Encounter for test, result negativeEncounter for surveillance of injectable contraceptive [facility] ([facility]) Encounter for test, result neg ative Encounter for surveillance of injectable contraceptive OutpatientOFFICE VISIT, EST Attender: Sanam MACKAY PPMIREILLE nails 10/02/2020 03:15:00 PM EST - 10/02/2020 03:15:00 PM EST DysuriaEncounter for oth general cnsl and advice on contraceptionOther sex counselingUrgency of urination [facility] ([facility]) Dysuria Encounter for oth general cnsl and [...] heterosexual behavior [facility] ([facility]) Oth disrd of the skin and subcutaneous t issue Other specified noninflammatory disorder s of vagina Encounter for oth general cnsl and advic e on contraception High risk heterosexual behavior Attender: SANDEE Perez 08/21/2020 03:20:00 PM EST - 08/21/2020 03:20:00 PM EST [facility] ([facility]) OFFICE VISIT, ESTOutpatient Attender: Melly Fong [place] 08/15/2020 02:30:00 PM EST - 08/15/2020 02:30:00 PM EST Human immunodeficiency virus [HIV] counselingEncounter for screening for human immunodeficiency virusEncounter for test, result negativeAcute vaginitisOther sex counselingEncntr screen for infections w sexl mode of transmissEncounter for initial prescription of injectable contracepEncounter for oth general cnsl and advice on contraception [facility] ([facility]) Human immunodeficiency virus [HIV] couns eling [...] AM EDT - 06/02/2020 02:21:00 AM EDT [facility] Patient discharged. Immunizations Vaccine Date Status Description Data Source(s) COVID-19 VACCINE Moderna 01/24/2021 12:00:00 AM EDT completed NYSIIS Vaccine Series Complete: NOThis Data was Submitted to [facility] Via [employer]. Medications Medication Brand Name Start Date Product Form Dose Route Admi nistrative Instructions Pharmacy Instructions Status Indications Reaction Description Data Source(s) medroxyprogesterone acetate 150 MG/ML In jectable Suspension medroxyprogesterone 150 mg/mL intramuscular suspension medroxyprogesterone 150 mg/mL intramuscu lar suspension 07/02/2021 12:00:00 AM EDT active IM every 10-13 weeks [facility] ([facility]) medroxyprogesterone acetate 150 MG/ML In jectable Suspension medroxyprogesterone 150 mg/mL intramuscular suspension medroxyprogesterone 150 mg/mL intramuscu lar suspension 04/15/2021 12:00:00 AM EDT active IM every 10-13 weeks [facility] ([facility]) NITROFURANTOIN, MACROCRYSTALS 25 MG / Ni trofurantoin, Monohydrate 75 MG Oral Capsule Nitrofurantoin Monohyd Macro 100 MG Nitrofurantoin Monohyd Macro 100 MG 01/29/2021 12:00:00 AM EDT active Nitrofurantoin Monohyd Macro 100 MG eCW1 ([facility]) NITROFURANTOIN, MACROCRYSTALS 25 MG / Ni trofurantoin, Monohydrate 75 MG Oral Capsule Nitrofurantoin Monohyd Macro 100 MG Nitrofurantoin Monohyd Macro 100 MG 01/29/2021 12:00:00 AM EDT active Nitrofurantoin Monohyd Macro 100 MG eCW1 ([facility]) NITROFURANTOIN, MACROCRYSTALS 25 MG / Ni trofurantoin, Monohydrate 75 MG Oral Capsule Nitrofurantoin Monohyd Macro 100 MG Nitrofurantoin Monohyd Macro 100 MG 01/29/2021 12:00:00 AM EDT active Nitrofurantoin Monohyd Macro 100 MG eCW1 ([facility]) NITROFURANTOIN, MACROCRYSTALS 25 MG / Ni trofurantoin, Monohydrate 75 MG Oral Capsule Nitrofurantoin Monohyd Macro 100 MG Nitrofurantoin Monohyd Macro 100 MG 01/29/2021 12:00:00 AM EDT active Nitrofurantoin Monohyd Macro 100 MG eCW1 ([facility]) doxycycline hyclate 100 MG Oral Capsule Doxycycline Hy clate 100 MG Doxycycline Hyclate 100 MG 01/12/2021 12:00:00 AM EDT 1.0 {capsule} active eCW1 ([facility]) doxycycline hyclate 100 MG Oral Capsule Doxycycline Hy clate 100 MG Doxycycline Hyclate 100 MG 01/12/2021 12:00:00 AM EDT 1.0 {capsule} active Doxycycline Hyclate 100 MG eCW1 ([facility]) doxycycline hyclate 100 MG Oral Capsule Doxycycline Hy clate 100 MG Doxycycline Hyclate 100 MG 01/12/2021 12:00:00 AM EDT 1.0 {capsule} active Doxycycline Hyclate 100 MG eCW1 ([facility]) doxycycline hyclate 100 MG Oral Capsule Doxycycline Hy clate 100 MG Doxycycline Hyclate 100 MG 01/12/2021 12:00:00 AM EDT 1.0 {capsule} active Doxycycline Hyclate 100 MG eCW1 ([facility]) doxycycline hyclate 100 MG Oral Capsule Doxycycline Hy clate 100 MG Doxycycline Hyclate 100 MG 01/12/2021 12:00:00 AM EDT 1.0 {capsule} active Doxycycline Hyclate 100 MG eCW1 ([facility]) doxycycline hyclate 100 MG Oral Capsule Doxycycline Hy clate 100 MG Doxycycline Hyclate 100 MG 01/12/2021 12:00:00 AM EDT 1.0 {capsule} active Doxycycline Hyclate 100 MG eCW1 ([facility]) Sucralfate 1000 MG Oral Tablet [Carafate] Carafate 1 GM Sul[place] fate 1 01/10/2021 12:00:00 AM EDT 1.0 {tablet_on_an_empty_stomach} active Carafate 1 GM eCW1 ([facility]) Sucralfate 1000 MG Oral Tablet [Carafate] Carafate 1 GM [place] fate 1 01/10/2021 12:00:00 AM EDT 1.0 {tablet_on_an_empty_stomach} active Carafate 1 GM eCW1 ([facility]) Sucralfate 1000 MG Oral Tablet [Carafate] Carafate 1 GM [place] fate 1 01/10/2021 12:00:00 AM EDT 1.0 {tablet_on_an_empty_stomach} active Carafate 1 GM eCW1 ([facility]) Sucralfate 1000 MG Oral Tablet [Carafate] Carafate 1 GM [place] fate 1 01/10/2021 12:00:00 AM EDT 1.0 {tablet_on_an_empty_stomach} active Carafate 1 GM eCW1 ([facility]) Sucralfate 1000 MG Oral Tablet [Carafate] Carafate 1 GM [place] fate 1 01/10/2021 12:00:00 AM EDT 1.0 {tablet_on_an_empty_stomach} ac tive eCW1 ([facility]) Sucralfate 1000 MG Oral Tablet [Carafate] Carafate 1 GM [place] fate 1 GM 01/10/2021 12:00:00 AM EDT 1.0 {tablet_on_an_empty_stomach} active Carafate 1 GM eCW1 ([facility]) Omeprazole 40 MG Delayed Release Oral Capsule Omeprazole 40 MG 12/31/2020 12:00:00 AM EDT active Omeprazo le 40 MG eCW1 ([facility]) Omeprazole 40 MG Delayed Release Oral Capsule Omeprazole 40 MG 12/31/2020 12:00:00 AM EDT active Omeprazo le 40 MG eCW1 ([facility]) Omeprazole 40 MG Delayed Release Oral Capsule Omeprazole 40 MG 12/31/2020 12:00:00 AM EDT active e CW1 ([facility]) Omeprazole 40 MG Delayed Release Oral Capsule Omeprazole 40 MG 12/31/2020 12:00:00 AM EDT active Omeprazo le 40 MG eCW1 ([facility]) Omeprazole 40 MG Delayed Release Oral Capsule Omeprazole 40 MG 12/31/2020 12:00:00 AM EDT active Omeprazo le 40 MG eCW1 ([facility]) Omeprazole 40 MG Delayed Release Oral Capsule Omeprazole 40 MG 12/31/2020 12:00:00 AM EDT active Omeprazo le 40 MG eCW1 ([facility]) Omeprazole 40 MG Delayed Release Oral Capsule Omeprazole 40 MG 12/31/2020 12:00:00 AM EDT active Omeprazo le 40 MG eCW1 ([facility]) medroxyprogesterone acetate 150 MG/ML In jectable Suspension medroxyprogesterone 150 mg/mL intramuscular suspension medroxyprogesterone 150 mg/mL intramuscu lar suspension 11/20/2020 12:00:00 AM EST active IM every 10-13 weeks [facility] ([facility]) Fluconazole 150 MG Oral Tablet fluconazole 150 mg tabl et fluconazole 150 mg tablet 10/02/2020 12:00:00 AM EST completed 1 po x 1 for fungal infection then repeat in 72 hours if needed [facility] ([facility]) valacyclovir 1000 MG Oral Tablet valacyclovir 1 gram t ablet valacyclovir 1 gram tablet 10/02/2020 12:00:00 AM EST active 1 tab po qd x 5d for outbreak [facility] ([facility]) Levofloxacin 250 MG Oral Tablet levofloxacin 250 mg ta blet levofloxacin 250 mg tablet 10/02/2020 12:00:00 AM EST active take 1 tablet by oral route every day for three days [facility] ([facility]) Lidocaine 0.05 MG/MG Topical Ointment lidocaine 5 % to pical ointment lidocaine 5 % topical ointment 08/26/2020 12:00:00 AM EST active apply ointment to lesions q 2 hrs prn discomfort [facility]) Fluconazole 150 MG Oral Tablet fluconazole 150 mg tabl et fluconazole 150 mg tablet 08/21/2020 12:00:00 AM EST completed 1 po x 1 for fungal infection then repeat in 72 hours if needed [facility]) medroxyprogesterone acetate 150 MG/ML In jectable Suspension medroxyprogesterone 150 mg/mL intramuscular suspension medroxyprogesterone 150 mg/mL intramuscu lar suspension 08/15/2020 12:00:00 AM EST active IM every 10-13 weeks [facility] ([facility]) Metronidazole 500 MG Oral Tablet metronidazole 500 mg tablet metronidazole 500 mg tablet 08/15/2020 12:00:00 AM EST complete d 1 tab po bid x 7d (#14) [facility] ([facility]) [employer] [place] Fe 10/01 (28) 1 mg-20 mcg (21)/75 mg (7) tablet {21 (ethinyl estradiol 0.02 MG / norethindrone acetate 1 MG Oral Tablet) / 7 (ferrous fumarate 75 MG Oral Tablet) } Pack 03/20/2020 12:00:00 AM EDT active [employer] [place] Fe 10/01 28 Day Pack [facility] ([facility]) Sertraline 50 MG Oral Tablet sertraline 50 mg tablet sertraline 50 mg tablet completed [facility] ([facility]) Insurance Providers Payer name Policy type / Coverage type Policy ID Covered alliance party ID Covered alliance party's relationship to campbell Policy Campbell Plan Information LIF[employer]IME BENEF[employer]UTIONS U [id number] Self [id number] LIF[employer]IME BEN[employer] SOLUTIONS U [id number] Self [id number] EXCELLUS H [id number] Child [id number] EXCELLUS H [id number] Self [id number] [employer] Commercial Insurance Co. [id number] Parent [id number] Excellus Blue Cross and Blue Shield - [place] Blue Cross/B lue Shield [id number] Parent [id number] Aetna Commercial Insurance Co. [id number] Parent [id number] LIF[employer]IME BENEFIT SOLUTIONS Commercial Insurance Co. [id number] Parent [id number] EXCELLUS BLUE CROSS BLUE SHIELD HEA [id number] P [id number] EXCELLUS BLUE CROSS BLUE SHIELD HEA [id number] P [id number] MEDICAID [id number] SP [id number] PENDING GOVT INSURANCE [id number] SP [id number] MEDICAID [id number] SP [id number] [facility] [id number] [id number] SELF PAY HEA [id number] S SELF PAY HEA SELF PAY HEA [facility] GABRIELA INSURANCE-OP [id number] [facility] GABRIELA INSURANCE-CLINIC [id number] undef ined [id number] LIFETIME BENEFIT SOLUTIONS [id number] undefined [id number] [facility] GABRIELA INSURANCE-OP [id number] undefined [id number] EBS-RMSCO [id number] [id number] [facility] InEdge INSURANCE-OP [id number] 19 [id number] [facility] [id number] [id number] LIFETIME BENEFIT SOLUTIONS [id number] 19 [id number] AETNA [place] [id number] FA2 [id number] [facility] -O/P [id number] 19 [id number] AETNA HEALTHCARE [place] [id number] FA2 [id number] AETNA [id number] FA2 [id number] BCBS [place] PPO [id number] LIF[employer]IME BENEFIT SOLUTIONS [id number] FA2 [id number] SELF PAY ONLY SP [facility] [id number] undefined [id number] LIF[employer]ENEF[employer]UTIONS [id number] undefined [id number] Problems, Conditions, and Diagnoses Code Display Name Description Problem Type Effective Dates Data Source(s) N3001 Acute cystitis with hematuria Acute cystitis with zachary turia Diagnosis 06/02/2020 01:38:00 AM EDT [facility] R300 Dysuria Dysuria Diagnosis 06/02/2020 01:38:00 AM ED T [facility] K21.9 [id number] Chronic GERD Problem 12/31/2020 12:00:00 AM EDT eCW1 ([facility]) H53.9 [id number] Transient vision disturbance of both eyes Problem 12/31/2020 12:00:00 AM EDT eCW1 ([facility]) R20.2 [id number] Facial paresthesia Problem 12/31/2020 12:00: 00 AM EDT eCW1 ([facility]) F41.9 [id number] Anxiety Problem 12/31/2020 12:00:00 AM ED T eCW1 ([facility]) R10.9 [id number] Stomach pain Problem 12/31/2020 12:00:00 AM EDT eCW1 ([facility]) Surgeries/Procedures Procedure Description Date Indications Data Source(s) CVR Automotive Service Professional.Svc. STI / H 07/02/2021 12:00:00 AM EDT - 07/02/2021 12:00:00 AM EDT [facility] ([facility]) CVR Automotive Service Professional.Svc. Nutrition 07/02/2021 12:00: 00 AM EDT - 07/02/2021 12:00:00 AM EDT [facility] ([facility]) CVR Automotive Service Professional.Svc. Contraceptive 07/02/2021 12 :00:00 AM EDT - 07/02/2021 12:00:00 AM EDT [facility] ([facility]) CVR Med.Svc. Height/Weight 07/02/2021 12 :00:00 AM EDT - 07/02/2021 12:00:00 AM EDT [facility] ([facility]) CVR Blood Pressure 07/02/2021 12:00:00 AM EDT - 2020 12:00:00 AM EDT [facility] ([facility]) SMEAR, WET MOUNT, SALINE/INK 07/02/2021 12:00:00 AM EDT - 07/02/2021 12:00:00 AM EDT [facility] ([facility]) ASSAY OF BODY FLUID ACIDITY 07/02/2021 1 2:00:00 AM EDT - 07/02/2021 12:00:00 AM EDT [facility] ([facility]) Depo/Medroxyprogesterone Inj. 150 Mg Nurse/CA 07/02/2021 12:00:00 AM EDT - 07/02/2021 12:00:00 AM EDT [facility] ([facility]) OFFICE VISIT, EST 07/02/2021 12:00:00 AM EDT - 021 12:00:00 AM EDT [facility] ([facility]) NURSE ONLY INJ. RN/FINANCE ADVISOR Only 04/15/2021 1 2:00:00 AM EDT - 04/15/2021 12:00:00 AM EDT [facility] ([facility]) Depo/Medroxyprogesterone Inj. 150 Mg Nurse/CA 04/15/2021 12:00:00 AM EDT - 04/15/2021 12:00:00 AM EDT [facility] ([facility]) CVR Automotive Service Professional.Svc. STI / H 04/15/2021 12:00:00 AM EDT - 04/15/2021 12:00:00 AM EDT [facility] ([facility]) CVR Automotive Service Professional.Svc. Nutrition 04/15/2021 12:00: 00 AM EDT - 04/15/2021 12:00:00 AM EDT [facility] ([facility]) CVR Med.Svc. Height/Weight 04/15/2021 12 :00:00 AM EDT - 04/15/2021 12:00:00 AM EDT [facility] ([facility]) CVR Blood Pressure 04/15/2021 12:00:00 AM EDT - 2020 12:00:00 AM EDT [facility] ([facility]) HCS Without Test 04/15/2021 12:00:00 AM EDT - 04/15/20 12:00:00 AM EDT [facility] ([facility]) N.GONORRHOEAE, URINE 04/15/2021 12:00:00 AM EDT - 04/15/2021 12:00:00 AM EDT [facility] ([facility]) CHYLMD TRACH, URINE 04/15/2021 12:00:00 AM EDT - 04/15 12:00:00 AM EDT [facility] ([facility]) PREV VISIT, EST, AGE 18-39 04/15/2021 12 :00:00 AM EDT - 04/15/2021 12:00:00 AM EDT [facility] ([facility]) URINE TEST 04/15/2021 12:00:00 AM EDT - 04/15/2021 12:00:00 AM EDT [facility] ([facility]) CVR Automotive Service Professional.Svc. Other 11/20/2020 12:00:00 AM EST - 2020 12:00:00 AM EST [facility] ([facility]) CVR Automotive Service Professional.Svc. Nutrition 11/20/2020 12:00: 00 AM EST - 11/20/2020 12:00:00 AM EST [facility] ([facility]) CVR Automotive Service Professional.Svc. Contraceptive 11/20/2020 12 :00:00 AM EST - 11/20/2020 12:00:00 AM EST [facility] ([facility]) CVR Med.Svc. Height/Weight 11/20/2020 12 :00:00 AM EST - 11/20/2020 12:00:00 AM EST [facility] ([facility]) CVR Blood Pressure 11/20/2020 12:00:00 AM EST - 2020 12:00:00 AM EST [facility] ([facility]) NURSE ONLY DEPO INJ. RN/FINANCE ADVISOR Only 021 12:00:00 AM EST - 11/20/2020 12:00:00 AM EST [facility] ([facility]) Depo/Medroxyprogesterone Inj. 150 Mg Nurse/CA 11/20/2020 12:00:00 AM EST - 11/20/2020 12:00:00 AM EST [facility] ([facility]) CVR BC Ending Method HORM.INJ. 3 MOS 07/2021 12:00:00 AM EST - 11/20/2020 12:00:00 AM EST [facility] ([facility]) URINE TEST 11/20/2020 12:00:00 AM EST - 11/20/2020 12:00:00 AM EST [facility] ([facility]) Injection Or Lab Only Visit Est 11/21/19 12:00:00 AM EST - 11/20/2020 12:00:00 AM EST [facility] ([facility]) CVR Automotive Service Professional.Svc. STI / H 10/02/2020 12:00:00 AM EST - 10/02/2020 12:00:00 AM EST [facility] ([facility]) CVR Automotive Service Professional.Svc. Other 10/02/2020 12:00:00 AM EST - 2020 12:00:00 AM EST [facility] ([facility]) CVR Automotive Service Professional.Svc. Contraceptive 10/02/2020 12 :00:00 AM EST - 10/02/2020 12:00:00 AM EST [facility] ([facility]) CVR Med.Svc. Height/Weight 10/02/2020 12 :00:00 AM EST - 10/02/2020 12:00:00 AM EST [facility] ([facility]) CVR Blood Pressure 10/02/2020 12:00:00 AM EST - 2020 12:00:00 AM EST [facility] ([facility]) CVR Med.Svc. Other 10/02/2020 12:00:00 AM EST - 2020 12:00:00 AM EST [facility] ([facility]) OFFICE VISIT, EST 10/02/2020 12:00:00 AM EST - 2 021 12:00:00 AM EST [facility] ([facility]) URINE CULTURE/COLONY COUNT 10/02/2020 12 :00:00 AM EST - 10/02/2020 12:00:00 AM EST [facility] ([facility]) URINALYSIS NONAUTO W/O SCOPE 10/02/2020 12:00:00 AM EST - 10/02/2020 12:00:00 AM EST [facility] ([facility]) CVR Automotive Service Professional.Svc. STI / H 08/26/2020 12:00:00 AM EST - 08/26/2020 12:00:00 AM EST [facility] ([facility]) CVR Automotive Service Professional.Svc. Contraceptive 08/26/2020 12 :00:00 AM EST - 08/26/2020 12:00:00 AM EST [facility] ([facility]) OFFICE VISIT, EST 08/26/2020 12:00:00 AM EST - 020 12:00:00 AM EST [facility] ([facility]) CVR Automotive Service Professional.Svc. STI / H 08/15/2020 12:00:00 AM EST - 08/15/2020 12:00:00 AM EST [facility] ([facility]) CVR Automotive Service Professional.Svc. Other 08/15/2020 12:00:00 AM EST - 2019 12:00:00 AM EST [facility] ([facility]) [employer] Professional.Svc. Contraceptive 08/15/2020 12 :00:00 AM EST - 08/15/2020 12:00:00 AM EST [facility] ([facility]) CVR Med.Svc. Vaginitis Rx 08/15/2020 12: 00:00 AM EST - 08/15/2020 12:00:00 AM EST [facility] ([facility]) CVR Med.Svc. Height/Weight 08/15/2020 12 :00:00 AM EST - 08/15/2020 12:00:00 AM EST [facility] ([facility]) CVR Blood Pressure 08/15/2020 12:00:00 AM EST - 2019 12:00:00 AM EST [facility] ([facility]) THER/PROPH/DIAG INJ, SC/IM 08/15/2020 12 :00:00 AM EST - 08/15/2020 12:00:00 AM EST [facility] ([facility]) Metronidazole 14 Tablets 08/15/2020 12:0 0:00 AM EST - 08/15/2020 12:00:00 AM EST [facility] ([facility]) Depo/Medroxyprogesterone Inj. 150 Mg Nurse/CA 08/15/2020 12:00:00 AM EST - 08/15/2020 12:00:00 AM EST [facility] ([facility]) CVR BC Ending Method HORM.INJ. 3 MOS 12/2019 12:00:00 AM EST - 08/15/2020 12:00:00 AM EST [facility] ([facility]) URINE TEST 08/15/2020 12:00:00 AM EST - 08/15/2020 12:00:00 AM EST [facility] ([facility]) ASSAY OF BODY FLUID ACIDITY 08/15/2020 1 2:00:00 AM EST - 08/15/2020 12:00:00 AM EST [facility] ([facility]) SMEAR, WET MOUNT, SALINE/INK 08/15/2020 12:00:00 AM EST - 08/15/2020 12:00:00 AM EST [facility] ([facility]) SYPHILLIS BLOOD SEROLOGY, QUALITATIVE 12:00:00 AM EST - 08/15/2020 12:00:00 AM EST [facility] ([facility]) HTLV/HIV SERUM TEST 08/15/2020 12:00:00 AM EST - 08/15 12:00:00 AM EST [facility] ([facility]) HEPATITIS C AB TEST 08/15/2020 12:00:00 AM EST - 08/15 12:00:00 AM EST [facility] ([facility]) N.GONORRHOEAE, SWAB 08/15/2020 12:00:00 AM EST - 08/15 12:00:00 AM EST [facility] ([facility]) CHYLMD TRACH, SWAB 08/15/2020 12:00:00 AM EST - 2019 12:00:00 AM EST [facility] ([facility]) OFFICE VISIT, EST 08/15/2020 12:00:00 AM EST - 020 12:00:00 AM EST [facility] ([facility]) ROUTINE VENIPUNCTURE 08/15/2020 12:00:00 AM EST - 08/15/2020 12:00:00 AM EST [facility] ([facility]) Results ID Date Data Source [id number] 07/02/2021 08:13:19 AM EDT [facility] ([facility]) Name Value Range Interpretation Code Description Data Sofia rce(s) Supporting Document(s) Hyphae/Trisha: no; Budding yeast: no; Trich: no; Clue cells: no; WBCs: no; Amine/Whiff test: negative; pH: 5.0 Wet Prep [facility] ([facility]) ID Date Data Source [id number] 07/02/2021 08:13:01 AM EDT [facility] ([facility]) Name Value Range Interpretation Code Description Data Sofia rce(s) Supporting Document(s) pH: 5.0. Vaginal pH [facility] ([facility]) ID Date Data Source [id number] 04/15/2021 07:33:10 AM EDT [facility] ([facility]) Name Value Range Interpretation Code Description Data Sofia rce(s) Supporting Document(s) NegativeLot: [id number]: 09/11/2022 High Sensitivity Urine Test [facility] ([facility]) ID Date Data Source [id number] 11/20/2020 08:53:26 AM EST [facility] ([facility]) Name Value Range Interpretation Code Description Data Sofia rce(s) Supporting Document(s) NegativeLot: [id number]: 06/11/2022 High Sensitivity Urine Test [facility] ([facility]) ID Date Data Source [id number] 10/02/2020 03:44:16 PM EST [facility] ([facility]) Name Value Range Interpretation Code Description Data Sofia rce(s) Supporting Document(s) Glucose: negative; Blood: mo derate; pH: 6.0; Protein: small; Nitrite: negative; Leukocytes: trace Abnormal (applies to non-numeric results) Urine Dipstick [facility] ([facility]) ID Date Data Source [id number] 08/15/2020 03:23:04 PM EST [facility] ([facility]) Name Value Range Interpretation Code Description Data Sofia rce(s) Supporting Document(s) NegativeLot: [id number]: 11/09/2021 High Sensitivity Urine Test [facility] ([facility]) ID Date Data Source [id number] 08/15/2020 03:19:21 PM EST [facility] ([facility]) Name Value Range Interpretation Code Description Data Sofia rce(s) Supporting Document(s) pH: 5.0. Vaginal pH [facility] ([facility]) ID Date Data Source [id number] 08/15/2020 03:19:11 PM EST [facility] ([facility]) Name Value Range Interpretation Code Description Data Sofia rce(s) Supporting Document(s) Hyphae/Trisha: no; Budding yeast: no; Trich: no; Clue cells: yes (>=20%); WBCs: no; Amine/Whiff test: negative; pH: 5.0 Abnormal (applies to non-numeric results) Wet Prep [facility] ([facility]) ID Date Data Source [id number] 06/02/2020 01:38:00 AM EDT [facility] 1 OrderSheet [facility] Emergency Department [address] [place] [address] Phone #: ext- [phone] 06/02/2020 01:09 Patient: [...] 02:07 06/02/2020 02:16 HerbertPO X1 dose: 800 Mati Paul RNmg (NOW x1) Physician;GENERAL ORDERSOrder Description Priority Entered Acknowledged Initialed[Electronically signed by Herbert Paul RN (02:21 06/02/2020)][Electronically signed by Mati Chavira Physician (05:37 06/02/2020)][Electronically locked by Herbert Paul RN (02:21 06/02/2020)] Name Value Range Interpretation Code Description Data Sofia rce(s) Supporting Document(s) ID Date Data Source [id number] 06/02/2020 01:38:00 AM EDT [facility] 1 Medication Reconciliation Report [facility] Emergency Department [address] [place] [address] Phone #: ext- [phone] 06/02/2020 01:09 Patient: [...] for UTI. Dispense 14 tablet. Refills: 0.Substitution permitted.[employer] [address] [phone]. .Pyridium 200 mg tablet Take 1 tablet every eight hours for 2 days -- for cystitis / bladder spasm.Dispense 6 tablet. Refills: 0. Substitution permitted.[facility] #66 - [address] [facility] ; [place], [place] [phone]. .ibuprofen 800 mg tablet Take 1 tablet every eight hours as needed for 10 days -- for pain / fever.Dispense 30 tablet. Refills: 0. Substitution permitted.[facility] [address] ; [place], [place] [phone]. FaxNumber: .Valtrex 500 mg tablet Take 1 tablet twice a day for 7 days -- to treat genital herpes. Dispense 14 tablet. 2 Medication Reconciliation Report [facility] Emergency Department [address] [place] [address] Phone #: ext- [phone] 06/02/2020 01:09 Patient: CATHY HICKEY I Sex: F : 2000 Age: 20yRefills: 0. Substitution permitted.Pharmacy - [facility] #78 - [address] [facility] ; [place], [place] [phone]. . -- Mati Chavira, Physician Name Value Range Interpretation Code Description Data Sofia rce(s) Supporting Document(s) ID Date Data Source [id number] 06/02/2020 01:38:00 AM EDT [facility] 1 Medication Administration Record [facility] Emergency Department [address] [place] [address] Phone #: ext- [phone] 06/02/2020 01:09 Patient: [...] [PO] Ibuprofen 800 mg PO X1 dose: 46887:16 06/02/2020 Dose: 800 mg Tablets PO mg (NOW x1)Herbert Paul RN Name Value Range Interpretation Code Description Data Sofia rce(s) Supporting Document(s) ID Date Data Source [id number] 06/02/2020 01:38:00 AM EDT [facility] 1 General Instructions [facility] Emergency Department [address] [place] [address] Phone #: ext- [phone] 06/02/2020 01:09 Patient: [...] for UTI. Dispense 14 tablet. Refills: 0.Substitution permitted.[facility] [address] [place] [phone]. .Pyridium 200 mg tablet Take 1 tablet every eight hours for 2 days -- for cystitis / bladder spasm.Dispense 6 tablet. Refills: 0. Substitution permitted.[facility] #04 [address] [place], [place] [phone]. .ibuprofen 800 mg tablet Take 1 tablet every eight hours as needed for 10 days -- for pain / fever.Dispense 30 tablet. Refills: 0. Substitution permitted.[employer] [facility] [address] [place] [address] ; [place], [place] [phone]. .Valtrex 500 mg tablet Take 1 tablet twice a day for 7 days -- to treat genital herpes. Dispense 14 tablet.Refills: 0. Substitution permitted.[employer] [place] [address] [place] [address] ; [place], [place] [phone]. .Follow-up:Follow up with your doctor in ten days if not better. Call for an appointment. Reason for referral: evaluation,treatment and UTI / Cystitis.Understanding of the discharge instructions verbalized by patient. 2 General Instructions [facility] Emergency Department [address] [place] [address] Phone #: ext- [phone] 06/02/2020 01:09 Patient: CATHY HICKEY I Sex: [...] more often than usual 3 General Instructions [facility] Emergency Department [address] [place] [address] Phone #: ext- [phone] 06/02/2020 01:09 Patient: [...] a diaphragm for control 4 General Instructions [facility] Emergency Department [address] [place] [address] Phone #: [phone]- [phone] 06/02/2020 01:09 Patient: [id number] Sex: F : 2000 Age: 20yTreatmentBladder infections [...] treatment. This is especially 5 General Instructions [facility] Department [address] [place] [address] Phone #: ymb- [phone] 06/02/2020 01:09 Patient: CATHY HICKEY I Sex: [...] swelling in the outer vaginal area (labia) [id number] [employer]. [address] [place] [address]. All rights reserved. This information is not [...] of yourself at home: 6 General Instructions [facility] Emergency Department [address] [place] [address] Phone #: ext- [phone] 06/02/2020 01:09 Patient: [...] fluids. These include water, juice, clear sodas, vicente nestor, or lemonade.Fever medicinesYou can take acetaminophen [...] 24 to 48 hours 7 General Instructions [facility] Emergency Department [address] [place] [address] Phone #: ext- [phone] 06/02/2020 01:09 Patient: [...] place where infectious diseases arecommon. Many people worm picker a cold or other virus while traveling. [...] you were there Where you stayed (hotel, afognak house, tent) 8 General Instructions [facility] Emergency Department [address] [place] [address] Phone #: ext- [phone] 06/02/2020 01:09 Patient: CATHY HICKEY I Sex: F : 2000 Age: 20y What you ate and drank If you were bitten by insects or other bugs If you swam in freshwater If you had sex or got a tattoo or piercing while you were thereCheck the [facility] to get more information about specific infectious diseases in the areas you havetraveled. [phone] [employer]. [address] [place] [address], [place] [address]. All rights reserved. This information is not intended as asubstitute for pro fessional medical care. Always follow your healthcare professional's instructions. You have been given the following additional information: Bladder Infection, Female (Adult) Fever Control (Adult)(Electronically signed by Mati Chavira, Physician 06/02/2020 05:37) Name Value Range Interpretation Code Description Data Sofia rce(s) Supporting Document(s) ID Date Data Source [id number] 06/02/2020 01:38:00 AM EDT [facility] 1 Clinical Report - Nurses [facility] Emergency Department [address] [place] [address] Phone #: ext- [phone] 06/02/2020 01:09 Patient: CATHY HICKEY I Sex: F : 2000 Age: 20yTRIAGEArrived by private vehicle. Historian: patient.Triage time: 01:10 06/02/2020. Acuity: LEVEL 4.Chief Complaint: PAINFUL URINATION and URGENCY.This started last night. ( awoke from sleeping and went to urinate and had burning during urination).Treatment BEHAVIORAL SCIENTIST:None.SEPSIS SCREEN: Sepsis Screen negative. No suspected or confirmed signs of infection present. --01:149 Herbert Paul RN01:10 06/02/20. BP: 130/83 (regular adult cuff) taken on the right arm, via an automated monitor, whilelying. MAP: 98. HR: 85 (regular and normal rate). RR: 18 (regular, unlabored and normal). O2 saturation:100% on room air. Temp: 98.3 F. Pain level now: 04/21. --01:14 06/02/20 Herbert Paul RNTreatment BEHAVIORAL SCIENTIST:(pyridium). --01:15 06/02/20 Herbert Paul RN.Weight: 58.9 kg [...] harming or 2 Clinical Report - Nurses [facility] Department [address] [place] [address] Phone #: ext- [phone] 06/02/2020 01:09 Patient: [...] patient. Reviewed 3 Clinical Report - Nurses [facility] Department [address] [place] [address] Phone #: ext- [phone] 06/02/2020 01:09 Patient: CATHY HICKEY I Sex: F : 2000 Age: 20y medication(s) side effects, precautions, dosing and course information. Prescription(s) sent electronically to pharmacy. Reviewed fever care instructions. Reviewed referral to family practice for followup. Reviewed need for increased fluid intake. Patient verbalized understanding. Written instructions provided in Cameroonian. The patient was discharged home. She left [...] rce(s) Supporting Document(s) ID Date Data Source [id number] 06/02/2020 01:38:00 AM EDT [facility] 1 Clinical Report - Physicians/Mid Levels [facility] Emergency Department [address] [place] [address] Phone #: ext- [phone] 06/02/2020 01:09 Patient: CATHY HICKEY I [facility]#: [id number] Sex: F : 2000 Age: 20y Time [...] supple. 2 Clinical Report - Physicians/Mid Levels [facility] Department [address] [place] [address] Phone #: ext- [phone] 06/02/2020 01:09 Patient: CATHY HICKEY I Sex: [...] NEGATIVE (NORMAL: NEGAT { KIT LOT # [id number] ){ KIT EXP DATE 06-24-21 ){ PROCEDURAL CONTROL VALID ).PROGRESS AND PROCEDURESCourse of Care: 02:Jun 02 2020. Patient is stable. 3 Clinical Report - Physicians/Mid Levels [facility] Department [address] [place] [address] Phone #: ext- [phone] 06/02/2020 01:09 ----- [...] tablet. Refills: 0. Substitution permitted. Pharmacy - [facility] #48 - [address] [place], [place] [phone]. . Pyridium 200 mg tablet Take 1 tablet every eight hours for 2 days -- for cystitis / bladder spasm. Dispense 6 tablet. Refills: 0. Substitution permitted. [employer] [address] [place] [address] ; [place], [place] [phone]. . ibuprofen 800 mg tablet Take 1 tablet every eight hours as needed for 10 days -- for pain / fever. Dispense 30 tablet. Refills: 0. Substitution permitted. [employer] [address] [place] [address] ; [place], [place] [phone]. . Valtrex 500 mg tablet Take 1 tablet twice a day for 7 days -- to treat genital herpes. Dispense 14 tablet. Refills: 0. Substitution permitted. [employer] [address] [place] [address] ; [place], [place] [phone]. . Follow-up: Follow up with your doctor in ten days if not better. Call for an appointment. Reason for referral: evaluation, 4 Clinical Report - Physicians/Mid Levels [facility] Department [address] [place] [address] Phone #: ext- [phone] 06/02/2020 01:09 Patient: CATHY HICKEY I Sex: F : 2000 Age: 20y treatment and UTI / Cystitis. Understanding of the discharge instructions verbalized by patient.(Electronically signed by Mati Chavira, Physician 06/02/2020 05:37) Name Value Range Interpretation Code Description Data Sofia rce(s) Supporting Document(s) ID Date Data Source [id number] 06/05/2020 08:19:00 PM EDT [facility] Name Value Range Interpretation Code Description Data Sofia rce(s) Supporting Document(s) CULTURE URINE [facility] _CULTURE URINE_$$[id number]$$[id number]$$[id number]$$[id number]$$[id number]$$[id number]$$[id number]$$[id number]$$[id number]$$ [id number]$$[id number]$$[id number]$$[id number]$$[id number]$$[id number]$$927960$$[id number]$$075512$$829162$$ 947640$$849256$$[id number]$$[id number]$$640602$$806106$$[id number]$$[id number] -- Continued on next page --Patient: BLADIMIR MORGAN I Order: Page 2Culture: CULTURE URINE Status: Final ==== -- Continued on next page --Patient: BLADIMIR MORGAN I Order: Page 2Culture: CULTURE URINE Status: Prelim =====$$[id number] DATE/TIME: 06/05/2020 12:06Culture: CULTURE URINE Status: FinalUrine Culture,Comprehensive: L0Oxftl urogenital flora5,000 Colonies/mL Previous result entered on 06/04/2020 07:06 ET Specimen has been received and testing has been initiated.P1 Test performed by: [facility] #: [id number] [address] [place] [id number] [facility] [id number] Director : Elio Aguilera MD NPI #:Umbrella Frame Maker : 06/04/20.1508.[email or web address] REF 06/05/20.XMT.SENT REF ID Date Data Source [id number] 06/02/2020 02:03:00 AM EDT [facility] Name Value Range Interpretation Code Description Data Sofia rce(s) Supporting Document(s) [facility] R [facility] COLOR orange NORMAL: Yellow [facility] CLARITY cloudy NORMAL: Clear [facility] Specific gravity of Urine by Test strip 1.020 1.001 - 1.030 [facility] pH 5 5 - 9 [facility] al Glucose [Mass/volume] in Urine by Test strip NORM NORMAL: Negat leatha [facility] Bilirubin.total [Presence] in Urine by Test strip 6 NORMAL: Negative [facility] Ketones [Presence] in Urine by Test strip NEG NORMAL: Negative [facility] Protein [Mass/volume] in Urine by Test strip 100 NORMAL: Negat leatha [facility] Nitrite [Presence] in Urine by Test strip POS NORMAL: Negative [facility] BLOOD 250 NORMAL: Negative [facility] Leukocyte esterase [Presence] in Urine by Test strip 100 CELINE L: Negative [facility] Urobilinogen [Mass/volume] in Urine by Test strip 8 less rita n 1.0 mg/dL [facility] MICROSCOPIC See Below [facility] ital WBC 30 - 40 NORMAL: NONE SEEN A [facility] Erythrocytes [#/volume] in Urine by Test strip 10 - 15 NORMAL: NON E SEEN A [facility] EPITHELIAL MANY NORMAL: NONE SEEN A [facility] Bacteria [Presence] in Urine sediment by Light microscopy 1+ SMALL NORMAL: NONE SEEN [facility] Mucus [Presence] in Urine sediment by Light microscopy 1+ NOR MAL: NONE SEEN [facility] ID Date Data Source [id number] 06/02/2020 01:59:00 AM EDT [facility] Name Value Range Interpretation Code Description Data Sofia rce(s) Supporting Document(s) HCG URINE QUAL NEGATIVE NORMAL: NEGATIVE [facility] HCG URINE QL REENTER NEGATIVE NORMAL: NEGATIVE [facility] { KIT LOT # [id number] ){ KIT EXP DATE 06-24-21 ){ PROCEDURAL CONTROL VALID ) Procedure Social History Code Duration Value Status Description Data Source(s ) Smoking 07/02/2021 12:00:00 AM EDT Never smoker completed Never s moker [facility] ([facility]) Smoking 02/02/2021 12:00:00 AM EDT Never Smoker completed Never S moker eCW1 ([facility]) Smoking 02/02/2021 12:00:00 AM EDT Never Smoker completed Never S moker eCW1 ([facility]) Smoking 02/02/2021 12:00:00 AM EDT Never Smoker completed Never S moker eCW1 ([facility]) Smoking 01/30/2021 12:00:00 AM EDT Never Smoker completed Never S moker eCW1 ([facility]) Smoking 01/27/2021 12:00:00 AM EDT Never Smoker completed Never S moker eCW1 ([facility]) Smoking 12/31/2020 12:00:00 AM EDT Never Smoker completed Never S moker eCW1 ([facility]) Smoking 12/31/2020 12:00:00 AM EDT Never Smoker completed Never S moker eCW1 ([facility]) Vital Signs ID Date Data Source UNK Name Value Range Interpretation Code Description Data Source(s) Body height 162.56 cm 162.56 cm [facility] Body weight 54.431 kg 54.431 kg [facility]) Systolic blood pressure 112 mm[Hg] 112 mm[Hg] N [facility] ([facility]) Diastolic blood pressure 73 mm[Hg] 73 mm[Hg] [facility] ([facility]) Body mass index (BMI) [Ratio] 20.60 kg/m2 20.60 kg/m2 [facility] ([facility]) Body weight 57.516 kg 57.516 kg [facility] ([facility]) Systolic blood pressure 130 mm[Hg] 130 mm[Hg] N [facility] ([facility]) Diastolic blood pressure 79 mm[Hg] 79 mm[Hg] [facility] ([facility]) Body mass index (BMI) [Ratio] 21.77 kg/m2 21.77 kg/m2 [facility] ([facility]) Body height 162.56 cm 162.56 cm [facility] Body height 162.56 cm 162.56 cm [facility] ([facility] Systolic blood pressure 114 mm[Hg] 114 mm[Hg] N [facility] ([facility]) Body weight 51.710 kg 51.710 kg [facility] Diastolic blood pressure 70 mm[Hg] 70 mm[Hg] [facility] ([facility]) Body mass index (BMI) [Ratio] 19.57 kg/m2 19.57 kg/m2 [facility] ([facility]) Body height 162.56 cm 162.56 cm [facility] Body weight 53.796 kg 53.796 kg [facility] ([facility] Systolic blood pressure 130 mm[Hg] 130 mm[Hg] N [facility] ([facility]) Diastolic blood pressure 82 mm[Hg] 82 mm[Hg] [facility] ([facility]) Body temperature 36.67 Ginette 36.67 Ginette [facility] ([facility]) Body mass index (BMI) [Ratio] 20.36 kg/m2 20.36 kg/m2 [facility] ([facility]) Body height 162.56 cm 162.56 cm [facility] ([facility] Patient Treatment Plan of Care Planned Activity Planned Date Details Description Data Source (s) medroxyprogesterone acetate 150 MG/ML Injectable Suspe nsion 07/02/2021 12:00:00 AM EDT [facility] medroxyprogesterone acetate 150 MG/ML Injectable Suspe nsion 04/15/2021 12:00:00 AM EDT [facility] NITROFURANTOIN, MACROCRYSTALS 25 MG / Ni trofurantoin, Monohydrate 75 MG Oral Capsule 01/29/2021 12:00:00 AM EDT eCW1 ([facility]) doxycycline hyclate 100 MG Oral Capsule 01/12/2021 12:00:00 AM EDT eCW1 ([facility]) Sucralfate 1000 MG Oral Tablet [Carafate] 01/10/2021 12:00:00 AM ED T eCW1 ([facility]) Omeprazole 40 MG Delayed Release Oral Capsule 12/31/2020 12:00:00 A M EDT eCW1 ([facility]) Omeprazole 40 MG Delayed Release Oral Capsule 12/31/2020 12:00:00 A M EDT eCW1 ([facility]) medroxyprogesterone acetate 150 MG/ML Injectable Suspe nsion 11/20/2020 12:00:00 AM EST [facility] valacyclovir 1000 MG Oral Tablet 10/02/2020 12:00:00 AM EST [facility] ([facility]) Fluconazole 150 MG Oral Tablet 10/02/2020 12:00:00 AM EST [facility] ([facility]) Levofloxacin 250 MG Oral Tablet 10/02/2020 12:00:00 AM EST [facility] ([facility]) Lidocaine 0.05 MG/MG Topical Ointment 08/26/2020 12:00:00 AM EST [facility] ([facility]) Fluconazole 150 MG Oral Tablet 08/21/2020 12:00:00 AM EST [facility] ([facility]) medroxyprogesterone acetate 150 MG/ML Injectable Suspe nsion 08/15/2020 12:00:00 AM EST [facility] Metronidazole 500 MG Oral Tablet 08/15/2020 12:00:00 AM EST [facility] ([facility]) [place] Fe 10/01 (28) 1 mg-20 mcg (21)/75 mg (7) tablet 03/20/2020 12:00:00 AM EDT [facility] Sertraline 50 MG Oral Tablet [facility] ([facility])
[2021-07-11 21:57] LABS: ALBUMIN 4.4 GM/DL (3.2-5.2); ALT/SGPT 18 U/L (12-78); BILIRUBIN,DIRECT 0.1 MG/DL (0.0-0.2); BILIRUBIN,TOTAL 0.3 MG/DL (0.2-1.0); BLOOD UREA NITROGEN 15 MG/DL (7-18); CALCIUM LEVEL 9.7 MG/DL (8.5-10.1); CARBON DIOXIDE LEVEL 25 MEQ/L (21-32); CHLORIDE LEVEL 111 MEQ/L (98-107); CREATININE FOR GFR 0.94 MG/DL (0.55-1.30); GLOMERULAR FILTRATION RATE > 60.0 (>60); GLUCOSE, FASTING 90 MG/DL (70-100); LIPASE 34 U/L (73-393); POTASSIUM SERUM 3.7 MEQ/L (3.5-5.1); SODIUM LEVEL 142 MEQ/L (136-145); TOTAL PROTEIN 7.6 GM/DL (6.4-8.2)
[2021-07-11 22:33] LABS: HCG, SERUM QUANTITATIVE < 1.0 MIU/ML
== END 2021-07-11 22:31 | disposition home or self-care (01) ==
LOC: M ED 20:09
DX: R10.9 Unspecified abdominal pain (principal); R19.7 Diarrhea, unspecified; Z88.1 Allergy status to other antibiotic agents
CPT/HCPCS: 80048; 80076; 83605; 83690; 84702; 85025; 87040; 87505; 96361; 96374; 99283; J2405

== ENCOUNTER 2021-09-15 02:21 | Emergency (ER) | payer OTHER ==
[~2021-09-15] VITALS: Ht 160 cm; Wt 45.5 kg
[2021-09-15] MEDS ORDERED: NS 1,000 ML IV ONE (02:30)
[2021-09-15] MEDS ORDERED: SUCR1TA PO (02:51)
[2021-09-15] MEDS ORDERED: ONDANSETRON 4MG/2ML VIAL IV ONE (03:00)
[2021-09-15 03:07] LABS: BASO % 0.3 % (0.0-1.0); EOS % 0.2 % (0.0-3.0); LYMPH # 2.4 10^3/uL (1.5-5.0); LYMPH % 25.7 % (24.0-44.0); MEAN CORPUSCULAR HEMOGLOBIN 30.1 pg (27.0-33.0); MEAN CORPUSCULAR HGB CONC 33.3 g/dl (32.0-36.5); MEAN CORPUSCULAR VOLUME 90.4 fl (80.0-96.0); MONO # 0.6 10^3/uL (0.0-0.8); MONO % 6.1 % (2.0-8.0); NEUTROPHILS # 6.2 10^3/uL (1.5-8.5); NEUTROPHILS % 67.4 % (36.0-66.0); PLATELET COUNT, AUTOMATED 273 10^3/uL (150-450); RED BLOOD COUNT 4.98 10^6/uL (4.00-5.40); WHITE BLOOD COUNT 9.2 10^3/uL (4.0-10.0)
[2021-09-15 03:11] LABS: AMPHETAMINES LEVEL URINE NEGATIVE (NEGATIVE); BARBITURATES URINE NEGATIVE (NEGATIVE); BENZODIAZEPINES URINE NEGATIVE (NEGATIVE); CANNABINOIDS URINE POSITIVE (NEGATIVE); COCAINE METABOLITE URINE NEGATIVE (NEGATIVE); METHADONE URINE NEGATIVE (NEGATIVE); OPIATES URINE NEGATIVE (NEGATIVE); PHENCYCLIDINE URINE NEGATIVE (NEGATIVE)
[2021-09-15 03:23] LABS: ABG BASE EXCESS -0.4 (-2.0-2.0); ABG HCO3 18.4 MEQ/L (22.0-26.0); ABG O2 SATURATION 99.2 % (95.0-99.0); ABG PARTIAL PRESSURE CO2 18.9 mmHg (35.0-45.0); ABG PARTIAL PRESSURE O2 138.6 mmHg (75.0-100.0); ABG STANDARD HCO3 24.2 MEQ/L (22.0-26.0); ABG pH (ARTERIAL) 7.606 UNITS (7.350-7.450)
[2021-09-15 03:42] LABS: ACETAMINOPHEN LEVEL < 2.0 UG/ML (10.0-30.0); ALBUMIN 4.6 GM/DL (3.2-5.2); ALT/SGPT 23 U/L (12-78); BILIRUBIN,DIRECT 0.1 MG/DL (0.0-0.2); BILIRUBIN,TOTAL 0.5 MG/DL (0.2-1.0); BLOOD UREA NITROGEN 16 MG/DL (7-18); CALCIUM LEVEL 9.5 MG/DL (8.5-10.1); CARBON DIOXIDE LEVEL 22 MEQ/L (21-32); CHLORIDE LEVEL 107 MEQ/L (98-107); CREATININE FOR GFR 0.96 MG/DL (0.55-1.30); ETHYL ALCOHOL (ETHANOL) < 0.003 % (0.000-0.010); GLOMERULAR FILTRATION RATE > 60.0 (>60); GLUCOSE, FASTING 125 MG/DL (70-100); POTASSIUM SERUM 3.9 MEQ/L (3.5-5.1); SALICYLATE LEVEL 2.2 MG/DL (5.0-30.0); SODIUM LEVEL 140 MEQ/L (136-145)
[2021-09-15 03:50] LABS: OSMOLALITY SERUM 291 MOSM/KG (275-295)
[2021-09-15 04:09] LABS: RSV AMPLIFICATION NEGATIVE (NEGATIVE)
[2021-09-15] MEDS ORDERED: ACETAMINOPHEN 500 MG TAB PO ONE (08:45)
[2021-09-15 10:13] VITALS: BP 106/60
== END 2021-09-15 10:31 | disposition home or self-care (01) ==
LOC: M ED 02:21
DX: R41.0 Disorientation, unspecified (principal); R11.2 Nausea with vomiting, unspecified; F41.9 Anxiety disorder, unspecified; K21.9 Gastro-esophageal reflux disease without esophagitis; G89.29 Other chronic pain; R10.9 Unspecified abdominal pain; Z79.899 Other long term (current) drug therapy; Z88.1 Allergy status to other antibiotic agents
CPT/HCPCS: 36415; 36600; 51701; 70450; 71045; 80048; 80076; 80143; 80307; 81001; 82077; 82550; 82803; 83605; 83930; 84443; 84702; 85025; 87631; 93005; 93041; 96361; 96374; 99285; J2405

== ENCOUNTER 2022-01-04 04:13 | Emergency (ER) | payer OTHER ==
[~2022-01-04] VITALS: Ht 162.6 cm; Wt 51.2 kg
[~2022-01-04 04:13] MED LIST changes: +SUCR1TA PO
[2022-01-04] MEDS ORDERED: CLON0.5T17 PO (04:17)
[2022-01-04] MEDS ORDERED: SERT25TA21 PO (04:17)
[2022-01-04 04:46] LABS: GLUCOSE, URINE (UA) MANUAL NEGATIVE (NEGATIVE); KETONE, URINE MANUAL NEGATIVE (NEGATIVE)
[2022-01-04 04:47] LABS: BILIRUBIN, URINE MANUAL OBSCURED (NEGATIVE); UROBILINOGEN, URINE MANUAL OBSCURED mg/dl (NORMAL)
[2022-01-04 04:53] LABS: RBC, URINE TNTC /hpf (0-3); SQUAMOUS EPITHELIAL CELL URINE MOD AMOUNT /hpf (SMALL AMT); TRANSITIONAL EPI CELLS, URINE SMALL AMOUNT /hpf
[2022-01-04 04:54] LABS: BACTERIA, URINE MOD AMOUNT
[2022-01-04 04:57] LABS: HYALINE CAST, URINE NONE SEEN /lpf (0-1); MUCUS, URINE SMALL AMOUNT (NEGATIVE)
[2022-01-04] MEDS ORDERED: NITROFURANTOIN (MACROBID) 100 MG CAP PO ONE (07:40)
[2022-01-04] MEDS ORDERED: PYRI1TAB5 PO (07:42)
[2022-01-04] MEDS ORDERED: MACR100C43 PO (07:42)
[2022-01-04 07:52] VITALS: BP 121/77
[2022-01-04 13:00] LABS: GC DNA AMPLIFICATION NEGATIVE (NEGATIVE)
== END 2022-01-04 08:01 | disposition home or self-care (01) ==
LOC: M ED 04:13
DX: N30.91 Cystitis, unspecified with hematuria (principal); F41.9 Anxiety disorder, unspecified; Z79.899 Other long term (current) drug therapy; Z88.1 Allergy status to other antibiotic agents

== ENCOUNTER → 2022-01-26 | Outpatient (REF) | payer OTHER ==
[~2022-01-26] MED LIST changes: +CLON0.5T17 PO; +MACR100C43 PO; +SERT25TA21 PO
[2022-01-26 23:18] LABS: AMORPHOUS SEDIMENT SMALL (NEGATIVE); APPEARANCE, URINE CLOUDY (CLEAR); BACTERIA, URINE AUTO NEGATIVE (NEGATIVE); BILIRUBIN, URINE AUTO NEGATIVE (NEGATIVE); BLOOD, URINE BLOOD NEGATIVE (NEGATIVE); COLOR, URINE YELLOW (YELLOW); GLUCOSE, URINE (UA) AUTO NEGATIVE (NEGATIVE); KETONE, URINE AUTO NEGATIVE (NEGATIVE); LEUKOCYTE ESTERASE, URINE AUTO NEGATIVE (NEGATIVE); MUCUS, URINE SMALL (NEGATIVE); NITRITE, URINE AUTO NEGATIVE (NEGATIVE); PROTEIN, URINE AUTO NEGATIVE (NEGATIVE); RBC, URINE AUTO 2 /HPF (0-3); SQUAMOUS EPITHELIAL CELL UR AU 1 /HPF (0-6); UROBILINOGEN, URINE AUTO 0.2 mg/dL (0.0-2.0); WBC, URINE AUTO 0 /HPF (0-3)
== END ==
LOC: M LAB REF 22:36
PROVIDERS: ATTEND Physician Assistant Medical
DX: N39.0 Urinary tract infection, site not specified (principal)

== ENCOUNTER 2022-01-30 16:51 | Emergency (ER) | payer OTHER ==
[~2022-01-30] VITALS: Ht 162.6 cm; Wt 48.7 kg
[2022-01-30 16:52] VITALS: BP 128/76
[2022-01-30] MEDS ORDERED: CLIN-250 (17:24)
[2022-01-30] MEDS ORDERED: MUPI2OI (17:24)
[2022-01-30] MEDS ORDERED: BACTDSTA (17:24)
[2022-01-30] MEDS ORDERED: METH10CP2 (17:24)
[2022-01-30] MEDS ORDERED: SERT50TA29 (17:24)
[2022-01-30] MEDS ORDERED: VALA1TAB5 (17:24)
[2022-01-30] MEDS ORDERED: LIDO5OIN19 (17:24)
[2022-01-30] MEDS ORDERED: ONDANSETRON 4MG/2ML VIAL IV ONE (17:55)
[2022-01-30 18:29] LABS: BASO % 0.7 % (0.0-1.0); EOS # 0.1 10^3/uL (0.0-0.5); EOS % 2.2 % (0.0-3.0); HEMATOCRIT 42.4 % (36.0-47.0); HEMOGLOBIN 14.4 g/dl (12.0-15.5); LYMPH # 2.6 10^3/uL (1.5-5.0); LYMPH % 43.4 % (24.0-44.0); MEAN CORPUSCULAR HEMOGLOBIN 30.8 pg (27.0-33.0); MEAN CORPUSCULAR VOLUME 90.8 fl (80.0-96.0); MONO # 0.6 10^3/uL (0.0-0.8); MONO % 9.9 % (2.0-8.0); NEUTROPHILS # 2.6 10^3/uL (1.5-8.5); NEUTROPHILS % 43.6 % (36.0-66.0); PLATELET COUNT, AUTOMATED 203 10^3/uL (150-450); RED BLOOD COUNT 4.67 10^6/uL (4.00-5.40)
[2022-01-30] MEDS ORDERED: KETOROLAC 30 MG/ML 1ML VIAL IV ONE (18:50)
[2022-01-30 19:01] LABS: BLOOD UREA NITROGEN 15 MG/DL (7-18); CALCIUM LEVEL 9.6 MG/DL (8.5-10.1); CARBON DIOXIDE LEVEL 25 MEQ/L (21-32); CHLORIDE LEVEL 107 MEQ/L (98-107); CREATININE FOR GFR 0.88 MG/DL (0.55-1.30); GLOMERULAR FILTRATION RATE > 60.0 (>60); GLUCOSE, FASTING 60 MG/DL (70-100); POTASSIUM SERUM 3.7 MEQ/L (3.5-5.1); SODIUM LEVEL 142 MEQ/L (136-145)
== END 2022-01-30 19:57 | disposition home or self-care (01) ==
LOC: M ED 16:51
DX: A60.09 Herpesviral infection of other urogenital tract (principal); Z79.899 Other long term (current) drug therapy; Z79.3 Long term (current) use of hormonal contraceptives; Z88.1 Allergy status to other antibiotic agents; F12.20 Cannabis dependence, uncomplicated
CPT/HCPCS: 80048; 83605; 84702; 85025; 87040; 96374; 96375; 99283; J1885; J2405

== ENCOUNTER → 2022-02-16 | Outpatient (CLI) | payer OTHER ==
[~2022-02-16] MED LIST changes: +BACTDSTA; +CLIN-250; +LIDO5OIN19; +METH10CP2; +MUPI2OI; +SERT50TA29; +VALA1TAB5
[2022-02-16 19:03] LABS: HEPATITIS B SURFACE ANTIGEN NEGATIVE (NEGATIVE); HEPATITIS C VIRUS ABY INDEX 0.1 INDEX (<0.8); HIV 1&2 SCREEN CENTAUR NEGATIVE (NEGATIVE)
== END ==
LOC: M PLALAB 15:38
PROVIDERS: ATTEND Obstetrics & Gynecology
DX: Z11.3 Encounter for screening for infections with a predominantly sexual mode of transmission (principal)

== ENCOUNTER → 2022-03-11 | Outpatient (REF) | payer OTHER ==
[2022-03-11 17:42] LABS: APPEARANCE, URINE CLEAR (CLEAR); BACTERIA, URINE AUTO NEGATIVE (NEGATIVE); BILIRUBIN, URINE AUTO NEGATIVE (NEGATIVE); BLOOD, URINE BLOOD NEGATIVE (NEGATIVE); CALCIUM OXALATE CRYSTALS SMALL; COLOR, URINE YELLOW (YELLOW); GLUCOSE, URINE (UA) AUTO NEGATIVE (NEGATIVE); KETONE, URINE AUTO NEGATIVE (NEGATIVE); LEUKOCYTE ESTERASE, URINE AUTO NEGATIVE (NEGATIVE); MUCUS, URINE SMALL (NEGATIVE); NITRITE, URINE AUTO NEGATIVE (NEGATIVE); PROTEIN, URINE AUTO NEGATIVE (NEGATIVE); RBC, URINE AUTO 1 /HPF (0-3); SPECIFIC GRAVITY URINE AUTO 1.025 (1.002-1.035); SQUAMOUS EPITHELIAL CELL UR AU 0 /HPF (0-6); UROBILINOGEN, URINE AUTO 0.2 mg/dL (0.0-2.0); WBC, URINE AUTO 0 /HPF (0-3)
== END ==
LOC: M SMT 17:00
PROVIDERS: ATTEND Physician Assistant
DX: N39.0 Urinary tract infection, site not specified (principal)

== ENCOUNTER 2022-07-12 06:38 | Emergency (ER) | payer OTHER, BC ==
[~2022-07-12] VITALS: Ht 162.6 cm; Wt 53.8 kg
[2022-07-12] MEDS ORDERED: [UNRECOGNIZED DRUG - CODE] (06:48)
[2022-07-12] MEDS ORDERED: ACETAMINOPHEN TAB 650MG DOSE (2X325MG) PO ONE (09:30)
[2022-07-12 10:10] VITALS: BP 118/70
== END 2022-07-12 10:44 | disposition home or self-care (01) ==
LOC: M ED 06:38
DX: R10.9 Unspecified abdominal pain (principal); R51.9 Headache, unspecified; Y04.0XXA Assault by unarmed brawl or fight, initial encounter; Y92.511 Restaurant or cafe as the place of occurrence of the external cause; Z87.440 Personal history of urinary (tract) infections; F90.9 Attention-deficit hyperactivity disorder, unspecified type; Z88.1 Allergy status to other antibiotic agents; Z79.899 Other long term (current) drug therapy

== ENCOUNTER → 2022-11-10 | Outpatient (REF) | payer OTHER, BC ==
[~2022-11-10] MED LIST changes: +[UNRECOGNIZED DRUG - CODE]
== END ==
LOC: M SFHCPLAZ 09:42
PROVIDERS: ATTEND Family Medicine
DX: Z53.9 Procedure and treatment not carried out, unspecified reason (principal)

== ENCOUNTER → 2022-11-10 | Outpatient (CLI) | payer OTHER, BC | LOC: M PLALAB 10:21 | PROVIDERS: ATTEND Student in an Organized Health Care Education/Training Program | DX: Z13.29 Encounter for screening for other suspected endocrine disorder (principal) ==

== ENCOUNTER 2023-01-18 10:30 | Day surgery (SDC) | payer OTHER, BC ==
[~2023-01-18] VITALS: Ht 162.6 cm; Wt 61.7 kg
[2023-01-18] MEDS ORDERED: LR 1,000 ML IV SCH (11:20)
[2023-01-18] MEDS ORDERED: ACETAMINOPHEN 1000MG 100ML IV BAG As Ordered ONE (12:38)
[2023-01-18] MEDS ORDERED: LIDOCAINE 2% 100MG/5ML SDV (FOR ANES.) As Ordered ONE (12:38)
[2023-01-18] MEDS ORDERED: SUGAMMADEX SODIUM 500 MG/5 ML VIAL (BRIDION) As Ordered ONE (12:38)
[2023-01-18] MEDS ORDERED: ROCURONIUM BROMIDE 50MG/5ML VIAL As Ordered ONE (12:38)
[2023-01-18] MEDS ORDERED: propofoL 200 MG/20 ML VIAL As Ordered ONE (12:38)
[2023-01-18] MEDS ORDERED: ONDANSETRON 4MG 2ML VIAL As Ordered ONE (12:38)
[2023-01-18] MEDS ORDERED: HYDROmorphone HCL 2MG/ML 1ML VIAL As Ordered ONE (12:39)
[2023-01-18] MEDS ORDERED: PHENYLEPHRINE 0.5% NASAL SPRAY 15 ML As Ordered ONE (13:31)
[2023-01-18] MEDS ORDERED: MORPHINE 2 MG/ML 1ML VIAL IV PRN (13:55)
[2023-01-18] MEDS ORDERED: ONDANSETRON 4MG 2ML VIAL IV PRN (13:55)
[2023-01-18] MEDS ORDERED: oxyCODONE 5MG TAB PO PRN (13:55)
[2023-01-18] MEDS ORDERED: fentaNYL 100 MCG/2 ML INJECTION IV PRN (13:55)
[2023-01-18] MEDS ORDERED: METOCLOPRAMIDE INJ 10MG/2ML VIAL IV ONE (15:45)
[2023-01-18 15:59] VITALS: BP 117/68
== END 2023-01-18 16:29 | disposition home or self-care (01) ==
LOC: M SDC 10:30
PROVIDERS: ATTEND Otolaryngology
DX: J35.01 Chronic tonsillitis (principal); F41.9 Anxiety disorder, unspecified; F43.10 Post-traumatic stress disorder, unspecified; F10.10 Alcohol abuse, uncomplicated; F15.10 Other stimulant abuse, uncomplicated; Z88.1 Allergy status to other antibiotic agents
CPT/HCPCS: 42826; 81025; 88302; J0131; J1100; J1170; J2405; J2765

== ENCOUNTER 2023-01-24 09:54 | Emergency (ER) | payer OTHER, BC ==
[~2023-01-24] VITALS: Ht 162.6 cm; Wt 58.3 kg
[2023-01-24 12:46] LABS: BASO % 0.3 % (0.0-1.0); EOS % 0.1 % (0.0-3.0); HEMATOCRIT 44.6 % (36.0-47.0); HEMOGLOBIN 14.6 g/dl (12.0-15.5); LYMPH # 1.2 10^3/uL (1.5-5.0); LYMPH % 16.7 % (24.0-44.0); MEAN CORPUSCULAR HEMOGLOBIN 28.6 pg (27.0-33.0); MEAN CORPUSCULAR HGB CONC 32.7 g/dl (32.0-36.5); MEAN CORPUSCULAR VOLUME 87.5 fl (80.0-96.0); MONO # 0.5 10^3/uL (0.0-0.8); MONO % 7.2 % (2.0-8.0); NEUTROPHILS # 5.4 10^3/uL (1.5-8.5); NEUTROPHILS % 75.4 % (36.0-66.0); PLATELET COUNT, AUTOMATED 251 10^3/uL (150-450); WHITE BLOOD COUNT 7.1 10^3/uL (4.0-10.0)
[2023-01-24 12:55] LABS: INR 0.94; PROTHROMBIN TIME 12.8 SECONDS (12.5-14.5)
[2023-01-24] MEDS ORDERED: AMOX500C PO (13:48)
[2023-01-24 13:56] VITALS: BP 126/88
== END 2023-01-24 13:58 | disposition home or self-care (01) ==
LOC: M ED 09:54
DX: J95.830 Postprocedural hemorrhage of a respiratory system organ or structure following a respiratory system procedure (principal); H66.92 Otitis media, unspecified, left ear; F90.9 Attention-deficit hyperactivity disorder, unspecified type; F12.90 Cannabis use, unspecified, uncomplicated; Z88.1 Allergy status to other antibiotic agents

== ENCOUNTER 2023-07-16 13:29 | Emergency (ER) | payer OTHER, BC ==
[~2023-07-16] VITALS: Ht 162.6 cm; Wt 63.9 kg
[~2023-07-16 13:29] MED LIST changes: +AMOX500C PO
[2023-07-16] MEDS ORDERED: IBUP200C25 PO (13:55)
[2023-07-16] MEDS ORDERED: AZO-95TA3 PO (13:55)
[2023-07-16] MEDS ORDERED: ACET1TAB55 PO (13:55)
[2023-07-16] MEDS ORDERED: BACTDSTA (13:55)
[2023-07-16] MEDS ORDERED: KETOROLAC 30 MG/ML 1ML VIAL IV ONE ×2 (18:30→21:15)
[2023-07-16 19:04] LABS: BASO % 0.5 % (0.0-1.0); EOS # 0.1 10^3/uL (0.0-0.5); EOS % 0.9 % (0.0-3.0); HEMATOCRIT 39.9 % (36.0-47.0); HEMOGLOBIN 13.2 g/dl (12.0-15.5); LYMPH # 1.8 10^3/uL (1.5-5.0); LYMPH % 22.2 % (24.0-44.0); MEAN CORPUSCULAR HEMOGLOBIN 28.7 pg (27.0-33.0); MEAN CORPUSCULAR HGB CONC 33.1 g/dl (32.0-36.5); MEAN CORPUSCULAR VOLUME 86.7 fl (80.0-96.0); MONO # 0.8 10^3/uL (0.0-0.8); MONO % 9.4 % (2.0-8.0); NEUTROPHILS # 5.3 10^3/uL (1.5-8.5); NEUTROPHILS % 66.7 % (36.0-66.0); PLATELET COUNT, AUTOMATED 250 10^3/uL (150-450)
[2023-07-16 19:34] LABS: BLOOD UREA NITROGEN 14 MG/DL (9-23); CALCIUM LEVEL 9.2 MG/DL (8.5-10.1); CARBON DIOXIDE LEVEL 27 MMOL/L (20-31); CHLORIDE LEVEL 106 MMOL/L (98-107); CREATININE FOR GFR 0.64 MG/DL (0.55-1.30); GLOMERULAR FILTRATION RATE > 60.0 (>60); GLUCOSE, FASTING 73 MG/DL (60-100); POTASSIUM SERUM 3.4 MMOL/L (3.5-5.1); SODIUM LEVEL 142 MMOL/L (136-145)
[2023-07-16] MEDS ORDERED: FLUCONAZOLE 50MG TABLET PO ONE (21:15)
[2023-07-16] MEDS ORDERED: FLUC150T9 PO (21:17)
[2023-07-16] MEDS ORDERED: KETO10TAB PO (21:17)
[2023-07-16] MEDS ORDERED: MIRA3350 PO (21:21)
[2023-07-16 21:36] VITALS: BP 102/56; TEMP 98.1; O2SAT 97
[2023-07-16] MEDS ORDERED: LIDOCAINE 2% JELLY 6ML SYRINGE TOP ONE (22:20)
[2023-07-16] MEDS ORDERED: LIDOCAINE 2% 5ML JELLY UROJET TOP ONE (22:25)
== END 2023-07-16 22:36 | disposition home or self-care (01) ==
LOC: M ED 13:29
DX: B37.31 Acute candidiasis of vulva and vagina (principal); K59.00 Constipation, unspecified; Z88.1 Allergy status to other antibiotic agents; Z79.1 Long term (current) use of non-steroidal anti-inflammatories (NSAID); Z79.899 Other long term (current) drug therapy
CPT/HCPCS: 74176; 80047; 80048; 81000; 81015; 84702; 85025; 87086; 87210; 96374; 99284; J1885

== ENCOUNTER 2024-11-04 06:51 | Emergency (ER) | payer OTHER, BC ==
[~2024-11-04] VITALS: Ht 162.6 cm; Wt 65.3 kg
[~2024-11-04 06:51] MED LIST changes: +ACET1TAB55 PO; +AZO-95TA3 PO; +FLUC150T9 PO; +IBUP200C25 PO; +KETO10TAB PO; +MIRA3350 PO
[2024-11-04 08:06] VITALS: BP 121/67; TEMP 96.9; O2SAT 98
== END 2024-11-04 08:11 | disposition home or self-care (01) ==
LOC: M ED 06:51
DX: S90.212A Contusion of left great toe with damage to nail, initial encounter (principal); W22.8XXA Striking against or struck by other objects, initial encounter; Y92.9 Unspecified place or not applicable; Y93.9 Activity, unspecified; Y99.9 Unspecified external cause status; Z79.899 Other long term (current) drug therapy; Z88.1 Allergy status to other antibiotic agents

== ENCOUNTER 2024-12-05 08:15 | Emergency (ER) | payer OTHER, BC ==
[~2024-12-05] VITALS: Ht 162.6 cm; Wt 66.8 kg
[2024-12-05 08:26] VITALS: TEMP 98.2
[2024-12-05 09:22] LABS: HEMOGLOBIN 13.4 g/dl (12.0-15.5); MEAN CORPUSCULAR HEMOGLOBIN 27.6 pg (27.0-33.0); MEAN CORPUSCULAR HGB CONC 33.5 g/dl (32.0-36.5); MEAN CORPUSCULAR VOLUME 82.3 fl (80.0-96.0); PLATELET COUNT, AUTOMATED 303 10^3/uL (150-450); RED BLOOD COUNT 4.86 10^6/uL (4.00-5.40); WHITE BLOOD COUNT 12.8 10^3/uL (4.0-10.0)
[2024-12-05 09:47] LABS: AMPHETAMINES LEVEL URINE NEGATIVE (NEGATIVE); BARBITURATES URINE NEGATIVE (NEGATIVE); BENZODIAZEPINES URINE NEGATIVE (NEGATIVE); METHADONE URINE NEGATIVE (NEGATIVE); OPIATES URINE NEGATIVE (NEGATIVE); PHENCYCLIDINE URINE NEGATIVE (NEGATIVE)
[2024-12-05 09:48] LABS: CANNABINOIDS URINE POSITIVE (NEGATIVE); COCAINE METABOLITE URINE POSITIVE (NEGATIVE)
[2024-12-05 09:49] LABS: ETHYL ALCOHOL (ETHANOL) < 0.003 % (0.000-0.010)
[2024-12-05 09:51] LABS: ALBUMIN 4.3 G/DL (3.2-5.2); ALKALINE PHOSPHATASE 78 U/L (35-104); ALT/SGPT 19 U/L (7.0-40); AST/SGOT 15 U/L (<34); BILIRUBIN,DIRECT < 0.1 MG/DL (<0.4); BILIRUBIN,TOTAL 0.3 MG/DL (0.3-1.2); BLOOD UREA NITROGEN 14 MG/DL (9-23); CALCIUM LEVEL 9.9 MG/DL (8.5-10.1); CARBON DIOXIDE LEVEL 24 MMOL/L (20-31); CHLORIDE LEVEL 104 MMOL/L (98-107); CREATININE FOR GFR 0.62 MG/DL (0.55-1.30); GLOMERULAR FILTRATION RATE > 60.0 (>60); GLUCOSE, FASTING 123 MG/DL (60-100); POTASSIUM SERUM 3.6 MMOL/L (3.5-5.1); SALICYLATE LEVEL < 3.0 MG/DL (<30); SODIUM LEVEL 141 MMOL/L (136-145); TOTAL PROTEIN 7.5 G/DL (5.7-8.2)
[2024-12-05 09:53] LABS: THYROID STIMULATING HORMONE 1.238 uIU/ML (0.55-4.78)
[2024-12-05] MEDS ORDERED: HYDR-3363 PO (10:57)
[2024-12-05 11:15] VITALS: BP 138/76; O2SAT 99
== END 2024-12-05 11:16 | disposition home or self-care (01) ==
LOC: M ED 08:15
DX: F41.9 Anxiety disorder, unspecified (principal); R06.4 Hyperventilation; Z88.8 Allergy status to other drugs, medicaments and biological substances

== ENCOUNTER 2025-08-28 12:26 | Emergency (ER) | payer OTHER, BC ==
[~2025-08-28] VITALS: Ht 160 cm; Wt 64.8 kg
[~2025-08-28 12:26] MED LIST changes: -BACTDSTA; +HYDR-3363 PO; -METH10CP2; +METH10CP3; +SULF-8
[2025-08-28 13:44] LABS: BASO # 0.1 10^3/uL (0.0-0.2); BASO % 0.5 % (0.0-1.0); EOS # 0.1 10^3/uL (0.0-0.5); EOS % 0.6 % (0.0-3.0); LYMPH # 1.6 10^3/uL (1.5-5.0); LYMPH % 16.9 % (24.0-44.0); MONO # 0.8 10^3/uL (0.0-0.8); MONO % 8.5 % (2.0-8.0); NEUTROPHILS # 6.9 10^3/uL (1.5-8.5); NEUTROPHILS % 73.2 % (36.0-66.0); PLATELET COUNT, AUTOMATED 262 10^3/uL (150-450)
[2025-08-28 14:16] LABS: CALCIUM LEVEL 9.2 MG/DL (8.5-10.1); CARBON DIOXIDE LEVEL 29 MMOL/L (20-31); CHLORIDE LEVEL 103 MMOL/L (98-107); CREATININE FOR GFR 0.65 MG/DL (0.55-1.30); GLOMERULAR FILTRATION RATE > 90.0 (>60); POTASSIUM SERUM 4.2 MMOL/L (3.5-5.1); SODIUM LEVEL 141 MMOL/L (136-145)
[2025-08-28 14:58] VITALS: BP 116/77; TEMP 98.6; O2SAT 99
== END 2025-08-28 15:02 | disposition home or self-care (01) ==
LOC: M ED 12:26
DX: J02.9 Acute pharyngitis, unspecified (principal); Z88.1 Allergy status to other antibiotic agents; Z88.2 Allergy status to sulfonamides